=== PATIENT | female | born 1980 | race Two or more races ===

== ENCOUNTER → 2018-04-09 | Outpatient (CLI) | payer OTHER ==
[2018-03-23 13:32] VITALS: BP 112/62
[~2018-04-09] MED LIST: HYDR-971 PO; LOPE2TAB56 PO; ONDA4TAB12 PO; Pantoprazole PO; SERT100T PO
--- NOTE | 2018-04-09 15:58 | RAD ---
Obstetrical ultrasound, 04/09/2018: HISTORY: Threatened Transabdominal and transvaginal scans were obtained. There are 2 small cystic structures in the central uterine cavity. The largest of these demonstrates a mean diameter of 2.4 cm suggesting a gestational age of 7 weeks and 3 days. No yolk sac or pole is seen within this cystic structure. Only a few scattered internal echoes are evident. A gestational sac of this diameter should demonstrate a yolk sac and probably a pole, if viable. Smaller 9 mm hypoechoic structure in the central uterine cavity along the superior margin of this larger fluid collection. There are low level at echoes within this structure. No yolk sac or pole is evident. This may represent a small subchorionic hemorrhage The ovaries are unremarkable. No adnexal mass is seen. No free fluid is evident in the pelvis. IMPRESSION: 1. Two small intrauterine fluid collections are evident, one of which is probably a nonviable (blighted ovum). The other smaller fluid collection is probably a small subchorionic hemorrhage, although an early twin cannot be excluded. Correlation with hCG titers and possibly sonographic follow-up is suggested. 2. No adnexal abnormality is detected. Electronically signed by: Dennis Garcia MD (04/09/2018 3:55 PM) [facility]
== END | disposition home or self-care (01) ==
LOC: US 12:09
PROVIDERS: ATTEND Obstetrics & Gynecology
DX: O20.0 Threatened abortion (principal); Z3A.01 Less than 8 weeks gestation of pregnancy
CPT/HCPCS: 76801; 76817

== ENCOUNTER 2018-04-18 13:08 | Day surgery (SDC) | payer OTHER ==
[~2018-04-18] VITALS: Ht 152.4 cm; Wt 59.9 kg
--- NOTE | 2018-04-18 12:18 | PDOC ---
BRIEF OPERATIVE NOTE Date: Apr 18, 2018 Pre-Op Diagnosis Blighted ovum Post-Op Diagnosis SAme Procedure Performed Suction D&C Surgeon Dr. Arana Anesthesia Type: General Blood Loss 100 ml Specimens Obtained POC Findings POC Complications none Operative Note see dictation SHAISTA ARANA Jr, MD Apr 18, 2018 12:18
--- NOTE | 2018-04-18 12:19 | DISCH ---
DISCHARGE INSTRUCTIONS Condition on Discharge Condition on Discharge: Stable Activity After Discharge Activity Instructions for Disc: Activity as tolerated Lifting Instructions after Dis: No heavy lifting, No pulling or pushing, Do not lift >10 pounds Exercise Instruction after Dis: Progress as tolerated Driving Instructions after Dis: Do not drive today Weight Bearing Status after Di: Full weight bearing Diet after Discharge Diet after Discharge: Regular Diet Texture: Regular Swallowing Supervision: None needed Contacting the DRRahel after DC Call your doctor for: Concerns you may have Follow-Up Follow up with: Dr. Arana in 1 wk Treatment/Equipment after DC Adaptive Equipment Issued: None SHAISTA ARANA Jr, MD Apr 18, 2018 12:19
[~2018-04-18 13:08] MED LIST changes: -HYDR-971 PO; +HYDROmorphone 2 MG/ML VIAL IV PRN; +IV RINGERS,LACTATED 1000ML 1,000 ML IV SCH; +LIDOCAINE 1% PF 2 ML VIAL. ID PRN; +LIDOCAINE 2% PF Vial for OR 5 ML VIAL. ONE; +MORPHINE SULFATE 2 MG/ML VIAL. IV PRN; +ONDANSETRON PF 4 MG/2 ML VIAL. IV PRN; +OXYTOCIN 10 UNIT/ML VIAL. ONE; +PROCHLORPERAZINE 10 MG/2 ML VIAL. IV PRN; +PROPOFOL 20 ML IV ONE; +SEVOFLURANE 31 TO 60 MINUTES. IH ONE; +VASOPRESSIN 20 UNIT/ML VIAL. ONE; +fentaNYL PF VIAL 100 MCG/2 ML VIAL IV PRN; +fentaNYL PF VIAL 100 MCG/2 ML VIAL ONE
[2018-04-18] MEDS ORDERED: HYDR-971 PO ×2 (13:13→13:15)
--- NOTE | 2018-04-18 13:23 | OP ---
DATE OF SURGERY: PREOPERATIVE DIAGNOSIS: Blighted ovum. POSTOPERATIVE DIAGNOSIS: Blighted ovum. PROCEDURE: Suction D and C. SURGEON: Shaista Galo M.D. ANESTHESIA: GETA. ESTIMATED BLOOD LOSS: 100 mL. COMPLICATIONS: None. FINDINGS: Products of conception. SUMMARY: A 37-year-old with 9-week blighted ovum counseled on suction D and C risks, benefits and expectations and voiced a clear understanding to proceed. DESCRIPTION OF PROCEDURE: The patient was taken to surgery suite and placed in dorsal lithotomy position. She was prepped with Betadine solution and draped in a sterile fashion. After adequate anesthesia, weighted speculum and curved Sarita were placed vaginally. The anterior lip of the cervix, where a single tooth tenaculum was placed. Cervix was dilated with Hegar dilators up to a size 10. The 9 curved tip suction curette was then passed and rotated in a circumferential manner at a pressure of 65 cm of mercury, removing products of conception and blood products. Sharp curettage took place until a fine gritty surface was palpated circumferentially. Suction curette was passed once again, removing additional products of conception. The area on the anterior lip of the cervix where the single tooth tenaculum was, had caused a laceration on the cervix. This was repaired with 2-0 Vicryl suture in a [id number] manner. The area was then hemostatic. The weighted speculum was then removed. The patient was taken to the recovery room in stable condition. Sponge and needle count correct x 3. SHAISTA GALO MD DR: VANITA/hayden JOB#: [id number] / [id number]
[2018-04-18 14:08] VITALS: BP 96/68
--- NOTE | 2018-04-22 13:09 | PATHOLOGY ---
[facility] Accession Number: [id number] . 01 Material submitted: . PRODUCTS OF CONCEPTION . 01 Clinical history: . Missed . . 02 Diagnosis: Intrauterine contents, removal: - Chorionic villi present. (SK:[facility]; 04/22/2018) QMS/04/22/2018 . 02 Electronically signed: . Cristobal Og MD, Pathologist NPI- [id number] . 01 Gross description: . Received in formalin labeled "King, Nayrobi, products of conception" is a 33 g, 6.7 x 4.0 x 2.5 cm aggregate of pink-thorpe soft tissue fragments. No parts are identified. Warehouse Inventory Clerk sections are submitted in cassettes A1-A3. ([facility] [place]; 04/18/2018) SYC/SYC . 02 Pathologist provided ICD-10: O02.1 . 02 CPT . 435577 Specimen Comment: A courtesy copy of this report has been sent to Specimen Comment: [phone], . Specimen Comment: Report sent to / DR KING Performed at: 01 [facility] [address] [place] [address] [address], [place] [id number] MD Jb Wells MD Phone: [phone] Performed at: 02 [facility] [address] [id number] MD Cosmo Mclean MD Phone: [phone]
== END 2018-04-18 14:37 | disposition home or self-care (01) ==
LOC: SURG 13:08
PROVIDERS: ATTEND Obstetrics & Gynecology
DX: O02.0 Blighted ovum and nonhydatidiform mole (principal); F32.9 Major depressive disorder, single episode, unspecified; Z90.49 Acquired absence of other specified parts of digestive tract; Z98.890 Other specified postprocedural states; Z79.899 Other long term (current) drug therapy; Z88.8 Allergy status to other drugs, medicaments and biological substances; Z82.49 Family history of ischemic heart disease and other diseases of the circulatory system; Z83.3 Family history of diabetes mellitus
CPT/HCPCS: 59820; 88305; A7015; J0690; J2001; J2590; J2704; J3010; J3490

== ENCOUNTER 2018-10-25 15:38 | Inpatient (IN) | payer OTHER ==
[~2018-10-25] VITALS: Ht 152.4 cm; Wt 59.0 kg
[~2018-10-25 15:38] MED LIST changes: +HYDR-3164 PO; -HYDROmorphone 2 MG/ML VIAL IV PRN; -IV RINGERS,LACTATED 1000ML 1,000 ML IV SCH; -LIDOCAINE 1% PF 2 ML VIAL. ID PRN; -LIDOCAINE 2% PF Vial for OR 5 ML VIAL. ONE; -MORPHINE SULFATE 2 MG/ML VIAL. IV PRN; -ONDANSETRON PF 4 MG/2 ML VIAL. IV PRN; -OXYTOCIN 10 UNIT/ML VIAL. ONE; -PROCHLORPERAZINE 10 MG/2 ML VIAL. IV PRN; -PROPOFOL 20 ML IV ONE; -SEVOFLURANE 31 TO 60 MINUTES. IH ONE; -VASOPRESSIN 20 UNIT/ML VIAL. ONE; -fentaNYL PF VIAL 100 MCG/2 ML VIAL IV PRN; -fentaNYL PF VIAL 100 MCG/2 ML VIAL ONE
[2018-10-25 16:30] VITALS: BP 117/80
--- NOTE | 2018-10-25 17:15 | PDOC1 ---
History and Physical Date of Admission Date of Admission DATE: 10/25/18 TIME: 17:15 Identification/Chief Complaint Chief Complaint SEEN AT [facility] ER WITH ACUTE SBO, PAIN// ABNORMAL CT C/W abrupt transition lower mid-abdomen c/o intractable emesis x [address] HENRY IN ER, [facility] Past Medical History Past Medical History Past Family/Social History Past Medical History Heme/Onc: Cancer Psych: Anxiety, Depression Past Surgical History Past Surgical History: Appendectomy, Cholecystectomy, Colon Resection Family History Family History: Diabetes, Heart Disease Social History Social History: Parent No ALCOHOL: none Drugs: None Lives: with Family * Past Medical, Surgical, Family and Obstetric Histories reviewed from chart. Blood Type: Unknown Rubella: Unknown RPR/VDRL: Unknown GBS Status: Unknown HBsAG: Unknown Heme/Onc: Cancer Psych: Anxiety, Depression Rheumatologic: No pertinent hx Infectious disease: No pertinent hx ENT: No pertinent hx Past Surgical History Past Surgical History: Appendectomy, Cholecystectomy, Colon Resection Family History Family History: Diabetes, Heart Disease, High Cholestrol Family History: Parent Social History Smoke: No ALCOHOL: none Drugs: None Current Medications Current Medications Active Scripts Active Reported Zoloft (Sertraline Hcl) 100 Mg Tablet 1 Tab PO DAILY Allergies Allergies: Coded Allergies: metoclopramide (Verified Allergy, Severe, Shortness of Air, 04/18/18) promethazine (Verified Allergy, Intermediate, 04/18/18) ROS Review of System 14 PT ROS OTHERWISE NEG General: No: Chills, Night Sweats, Fatigue, Malaise, Appetite, Other PSYCHOLOGICAL ROS: YES: Anxiety; No: Behavioral Disorder, Concentration difficultie, Decreased libido, Depression, Disorientation, Hallucinations, Hostility, Irritablity, Memory difficulties, Mood Swings, Obsessive thoughts, Physical abuse, Sexual abuse, Sleep disturbances, Suicidal ideation, Other Eyes: No Blurry vision, No Decreased vision, No Double vision, No Dry eyes, No Excessive tearing, No Eye Pain, No Itchy Eyes, No Loss of vision, No Photophobia, No Scotomata, No Uses contacts, No Uses glasses, No Other HEENT: No: Heacaches, Visual Changes, Hearing change, Nasal congestion, Nasal discharge, Oral lesions, Sinus pain, Sore Throat, Epistaxis, Sneezing, Snoring, Tinnitus, Vertigo, Vocal changes, Other ALLERGY AND IMMUNOLOGY: No: Hives, Insect Bite Sensitivity, Itchy/Watery Eyes, Nasal Congestion, Post Nasal Drip, Seasonal Allergies, Other Hematological and Lymphatic: No: Bleeding Problems, Blood Clots, Blood Transfusions, Brusing, Night Sweats, Pallor, Swollen Lymph Nodes, Other ENDOCRINE: No: Breast Changes, Galactorrhea, Hair Pattern Changes, Hot Flashes, Malaise/lethargy, Mood Swings, Palpitations, Polydipsia/polyuria, Skin Changes, Temperature Intolerance, Unexpected Weight Changes, Other Respiratory: No: Cough, Hemoptysis, Orthopnea, Pleuritic Pain, Shortness of breath, SOB with excertion, Sputum Changes, Stridor, Tachypnea, Wheezing, Other Cardiovascular: No Chest Pain, No Palpitations, No Orthopnea, No Paroxysmal Noc. Dyspnea, No Edema, No Lt Headedness, No Other Gastrointestinal: Yes Nausea, Yes Vomiting, Yes Abdominal Pain; No Diarrhea, No Constipation, No Melena, No Hematochezia, No Other Genitourinary: No Dysuria, No Frequency, No Incontinence, No Hematuria, No Retention, No Discharge, No Urgency, No Pain, No Flank Pain, No Other, No , No , No , No , No , No , No Musculoskeletal: No Gait Disturbance, No Joint Pain, No Joint Stiffness, No Joint Swelling, No Muscle Pain, No Muscular Weakness, No Pain In:, No Swelling In:, No Other Neurological: No Behavorial Changes, No Bowel/Bladder ControlChng, No Confusion, No Dizziness, No Gait Disturbance, No Headaches, No Impaired Coord/balance, No Memory Loss, No Numbness/Tingling, No Seizures, No Speech Problems, No Tremors, No Visual Changes, No Weakness, No Other Skin: No Dry Skin, No Eczema, No Hair Changes, No Lumps, No Mole Changes, No Mottling, No Nail Changes, No Pruritus, No Rash, No Skin Lesion Changes, No Other, No Acne Physical Exam General: Alert, Oriented X3, Cooperative, No acute distress, moderate distress HEENT: PERRLA Lungs: Clear to auscultation, Normal air movement Breasts: Not examined Abdomen: No hepatosplenomegaly, Other (loer right tenderness) Rectal Exam: not examined PELVIC: Examination not indicated Extremities: No clubbing, No cyanosis Neuro: Normal speech, Strength at 5/5 X4 ext, Sensation intact, Cranial nerves 3-12 NL Psych/Mental Status: Mental status NL, Mood NL VTE Prophylaxis Ordered VTE Prophylaxis Devices: Yes VTE Pharmacological Prophylaxi: Yes Assessment/Plan Assessment/Plan impression 1. acute small bowel obstruction 2. INTRACTABLE NAUSEA AND VOMITING plan admit npo NG TUBE IV FLUID SUPPORT DVT PROPHYLAXIS IV PROTONIX GI PROPHYLAXIS DR EDWARDS CONSULTED, AWARE OF ADMIT 78 MIN PT EXAM, chart review, > 50% of time spent with exam, chart review, pt care coordination ANSON SHELTON MD October 25, 2018 17:15
[2018-10-25] MEDS: fentaNYL PF VIAL 100 MCG/2 ML VIAL IV PRN ×2 (17:30→21:59)
[2018-10-25] MEDS: IPRATRPIUM/ALBUTEROL 0.5/2.5MG 3 ML NEBU. NEB SCH ×2 (18:45→22:45)
[2018-10-25] MEDS ORDERED: 0.9 % SODIUM CHLORIDE 3ML DISP.SYRIN. IV PRN (18:45)
[2018-10-25] MEDS ORDERED: ACETAMINOPHEN 650 MG SUPP.RECT. PR PRN (18:45)
[2018-10-25] MEDS ORDERED: guaiFENesin ORAL 200 MG/10 ML LIQUID. PO PRN (18:45)
[2018-10-25] MEDS ORDERED: LORazepam 0.5 MG TABLET PO PRN (18:45)
[2018-10-25] MEDS ORDERED: cloNIDine HCL 0.1 MG TABLET PO PRN (18:45)
[2018-10-25 19:00] VITALS: BP 123/79
[2018-10-25] MEDS: IV NORMAL SALINE 1000ML BAG 1,000 ML IV SCH (19:23)
[2018-10-25] MEDS: ONDANSETRON PF 4 MG/2 ML VIAL. IV PRN (19:24)
--- NOTE | 2018-10-25 19:40 | NUR ---
Pt refused scheduled breathing treatment; pt's lungs clear with no c/o SOA. Pt in bed w/ family at bedside, will continue to monitor.
[2018-10-25] MEDS ORDERED: fentaNYL PF VIAL 100 MCG/2 ML VIAL IV ONE (19:45)
[2018-10-25 23:00] VITALS: BP 120/75
[2018-10-26] MEDS: fentaNYL PF VIAL 100 MCG/2 ML VIAL IV PRN ×4 (02:06→21:31)
[2018-10-26] MEDS: ONDANSETRON PF 4 MG/2 ML VIAL. IV PRN ×3 (02:06→21:34)
[2018-10-26] MEDS: IPRATRPIUM/ALBUTEROL 0.5/2.5MG 3 ML NEBU. NEB SCH ×6 (02:45→22:45)
[2018-10-26 03:00] VITALS: BP 108/71
[2018-10-26] MEDS: IV NORMAL SALINE 1000ML BAG 1,000 ML IV SCH ×2 (05:10→14:39)
[2018-10-26 05:47] LABS: BASO % 0 % (0-3); EOS % 0 % (0-3); HEMATOCRIT 43.2 % (36.0-47.0); LYMPH # 1.2 x10^3/uL (1.0-4.8); LYMPH % 15 % (24-48); MEAN CORPUSCULAR HEMOGLOBIN 29 pg (25-35); MEAN CORPUSCULAR HGB CONC 32 g/dL (31-37); MEAN CORPUSCULAR VOLUME 88 fL (79-100); MONO # 0.3 x10^3/uL (0.0-1.1); MONO % 3 % (0-9); NEUT # 6.8 x10^3uL (1.8-7.7); NEUT % 81 % (31-73); PLATELET COUNT 265 x10^3/uL (140-400); RED BLOOD COUNT 4.91 x10^6/uL (3.50-5.40); RED CELL DISTRIBUTION WIDTH 12.9 % (11.5-14.5); WHITE BLOOD COUNT 8.4 x10^3/uL (4.0-11.0)
[2018-10-26 05:53] LABS: ALBUMIN 3.4 g/dL (3.4-5.0); CALCIUM 8.2 mg/dL (8.5-10.1); CREATININE 0.7 mg/dL (0.6-1.0); GFR 93.2; POTASSIUM 3.8 mmol/L (3.5-5.1); TOTAL BILIRUBIN 0.4 mg/dL (0.2-1.0); TOTAL PROTEIN 6.9 g/dL (6.4-8.2)
[2018-10-26 07:00] VITALS: BP 130/78
[2018-10-26] MEDS: ENOXAPARIN 40 MG/0.4 ML SYRINGE. SQ SCH (08:11)
--- NOTE | 2018-10-26 08:12 | PDOC2 ---
CONSULT Date of Consult Date of Consult DATE: 10/26/18 TIME: 08:09 Reason for Consult Reason for Consult: Nausea vomiting Referring Physician Referring Physician: Tamiko Identification/Chief Complaint Chief Complaint Nausea vomiting Source Source: Patient History of Present Illness Reason for Visit: 37-year-old female who was seen initially at the emergency department at [facility] with complaints of 24 hours nausea vomiting and upper abdominal pain. She was transferred to [place] for further evaluation for possible small bowel obstruction patient was seen in her room this morning resting comfortably with an NG tube she states that she's had nausea vomiting for 24 hours although this morning she is feeling somewhat better denies passing any flatus or stool overnight last bowel movement was yesterday morning. She has a long history of ileus versus small bowel obstructions being hospitalized with resolution of bowel obstructions with conservative therapy she has known history of colon resection appendectomy, history of carcinoid Past Medical History Cardiovascular: No pertinent hx Pulmonary: No pertinent hx GI: No pertinent hx Heme/Onc: Cancer Psych: Anxiety, Depression Rheumatologic: No pertinent hx Infectious disease: No pertinent hx ENT: No pertinent hx Past Surgical History Past Surgical History: Appendectomy, Cholecystectomy, Colon Resection Family History Family History: Diabetes, Heart Disease, High Cholestrol Social History Social History: Parent No ALCOHOL: none Drugs: None Lives: with Family Current Medications Current Medications Current Medications Fentanyl Citrate (Fentanyl 2ml Vial) 50 mcg PRN Q4HRS PRN IV PAIN Last administered on 10/25/18at 17:30; Start 10/25/18 at 17:15 Sodium Chloride (Normal Saline Flush 3ml) 3 ml QSHIFT PRN IV AFTER MEDS AND BLOOD DRAWS; Start 10/25/18 at 18:45 Sodium Chloride 1,000 ml @ 100 mls/hr Q10H IV Last administered on 10/26/18at 05:10; Start 10/25/18 at 18:39 Ondansetron HCl (Zofran) 4 mg PRN Q4HRS PRN IV NAUSEA/VOMITING Last administered on 10/26/18at 06:21; Start 10/25/18 at 18:45 Acetaminophen (Tylenol Supp) 650 mg PRN Q4HRS PRN CT TEMP OVER 100.4F OR MILD PAIN; Start 10/25/18 at 18:45 Clonidine HCl (Catapres) 0.1 mg PRN Q6HRS PRN PO SBP>160 OR DBP>90; Start 10/25/18 at 18:45 Diphenhydramine HCl (Benadryl) 25 mg PRN Q4HRS PRN IVP ITCHING; Start 10/25/18 at 18:45 Albuterol/ Ipratropium (Duoneb) 3 ml Q4H NEB ; Start 10/25/18 at 18:45 Guaifenesin (Robitussin) 200 mg PRN Q4HRS PRN PO COUGH; Start 10/25/18 at 18:45 Lorazepam (Ativan) 0.5 mg PRN Q4HRS PRN PO ANXIETY / AGITATION; Start 10/25/18 at 18:45 Enoxaparin Sodium (Lovenox 40mg Syringe) 40 mg DAILY SQ ; Start 10/26/18 at 09:00 Fentanyl Citrate (Fentanyl 2ml Vial) 50 mcg 1X ONCE IV Last administered on 10/25/18at 19:44; Start 10/25/18 at 19:45; Stop 10/25/18 at 19:46; Status DC Fentanyl Citrate (Fentanyl 2ml Vial) 75 mcg PRN Q3HRS PRN IV PAIN Last administered on 10/26/18at 05:09; Start 10/25/18 at 19:45 Active Scripts Active Reported Zoloft (Sertraline Hcl) 100 Mg Tablet 1 Tab PO DAILY Allergies Allergies: Coded Allergies: metoclopramide (Verified Allergy, Severe, Shortness of Air, 04/18/18) promethazine (Verified Allergy, Intermediate, 04/18/18) ROS Gastrointestinal: Yes Nausea, Yes Vomiting, Yes Abdominal Pain Physical Exam General: Alert, Oriented X3, Cooperative, mild distress HEENT: Atraumatic Lungs: Clear to auscultation, Normal air movement Heart: Regular rate, No murmurs Abdomen: Normal bowel sounds, Soft, Other (mildly tender to palpation in the epigastrium NG tube with bilious output) Extremities: No edema Skin: No significant lesion Neuro: Normal speech Psych/Mental Status: Mental status NL Vitals VITALS Vital Signs Date Time Temp Pulse Resp B/P (MAP) Pulse Ox O2 Delivery O2 Flow Rate FiO2 10/26/18 05:40 16 Room Air 10/26/18 03:00 97.9 80 108/71 (83) 97 97.9 Labs Labs Laboratory Tests Test 10/26/18 05:05 White Blood Count 8.4 x10^3/uL (4.0-11.0) Red Blood Count 4.91 x10^6/uL (3.50-5.40) Hemoglobin 14.0 g/dL (12.0-15.5) Hematocrit 43.2 % (36.0-47.0) Mean Corpuscular Volume 88 fL (79-100) Mean Corpuscular Hemoglobin 29 pg (25-35) Mean Corpuscular Hemoglobin Concent 32 g/dL (31-37) Red Cell Distribution Width 12.9 % (11.5-14.5) Platelet Count 265 x10^3/uL (140-400) Neutrophils (%) (Auto) 81 % (31-73) Lymphocytes (%) (Auto) 15 % (24-48) Monocytes (%) (Auto) 3 % (0-9) Eosinophils (%) (Auto) 0 % (0-3) Basophils (%) (Auto) 0 % (0-3) Neutrophils # (Auto) 6.8 x10^3uL (1.8-7.7) Lymphocytes # (Auto) 1.2 x10^3/uL (1.0-4.8) Monocytes # (Auto) 0.3 x10^3/uL (0.0-1.1) Eosinophils # (Auto) 0.0 x10^3/uL (0.0-0.7) Basophils # (Auto) 0.0 x10^3/uL (0.0-0.2) Sodium Level 140 mmol/L (136-145) Potassium Level 3.8 mmol/L (3.5-5.1) Chloride Level 104 mmol/L (98-107) Carbon Dioxide Level 25 mmol/L (21-32) Anion Gap 11 (6-14) Blood Urea Nitrogen 10 mg/dL (7-20) Creatinine 0.7 mg/dL (0.6-1.0) Estimated GFR (Cockcroft-Gault) 93.2 BUN/Creatinine Ratio 14 (6-20) Glucose Level 104 mg/dL (70-99) Calcium Level 8.2 mg/dL (8.5-10.1) Total Bilirubin 0.4 mg/dL (0.2-1.0) Aspartate Amino Transf (AST/SGOT) 19 U/L (15-37) Alanine Aminotransferase (ALT/SGPT) 28 U/L (14-59) Alkaline Phosphatase 73 U/L (46-116) Total Protein 6.9 g/dL (6.4-8.2) Albumin 3.4 g/dL (3.4-5.0) Albumin/Globulin Ratio 1.0 (1.0-1.7) Laboratory Tests Test 10/26/18 05:05 White Blood Count 8.4 x10^3/uL (4.0-11.0) Red Blood Count 4.91 x10^6/uL (3.50-5.40) Hemoglobin 14.0 g/dL (12.0-15.5) Hematocrit 43.2 % (36.0-47.0) Mean Corpuscular Volume 88 fL (79-100) Mean Corpuscular Hemoglobin 29 pg (25-35) Mean Corpuscular Hemoglobin Concent 32 g/dL (31-37) Red Cell Distribution Width 12.9 % (11.5-14.5) Platelet Count 265 x10^3/uL (140-400) Neutrophils (%) (Auto) 81 % (31-73) Lymphocytes (%) (Auto) 15 % (24-48) Monocytes (%) (Auto) 3 % (0-9) Eosinophils (%) (Auto) 0 % (0-3) Basophils (%) (Auto) 0 % (0-3) Neutrophils # (Auto) 6.8 x10^3uL (1.8-7.7) Lymphocytes # (Auto) 1.2 x10^3/uL (1.0-4.8) Monocytes # (Auto) 0.3 x10^3/uL (0.0-1.1) Eosinophils # (Auto) 0.0 x10^3/uL (0.0-0.7) Basophils # (Auto) 0.0 x10^3/uL (0.0-0.2) Sodium Level 140 mmol/L (136-145) Potassium Level 3.8 mmol/L (3.5-5.1) Chloride Level 104 mmol/L (98-107) Carbon Dioxide Level 25 mmol/L (21-32) Anion Gap 11 (6-14) Blood Urea Nitrogen 10 mg/dL (7-20) Creatinine 0.7 mg/dL (0.6-1.0) Estimated GFR (Cockcroft-Gault) 93.2 BUN/Creatinine Ratio 14 (6-20) Glucose Level 104 mg/dL (70-99) Calcium Level 8.2 mg/dL (8.5-10.1) Total Bilirubin 0.4 mg/dL (0.2-1.0) Aspartate Amino Transf (AST/SGOT) 19 U/L (15-37) Alanine Aminotransferase (ALT/SGPT) 28 U/L (14-59) Alkaline Phosphatase 73 U/L (46-116) Total Protein 6.9 g/dL (6.4-8.2) Albumin 3.4 g/dL (3.4-5.0) Albumin/Globulin Ratio 1.0 (1.0-1.7) Images Images ET scan done at [facility] show dilated loops of small bowel possible transition point mid ileum and a fair amount of stool within the colon Assessment/Plan Assessment/Plan Small bowel obstruction versus ileus agree with conservative therapy NG suction and IV hydration will recheck abdominal films in the a.m. if no improvement plan small bowel follow-through ANSON EDWARDS MD October 26, 2018 08:12
[2018-10-26 08:31] LABS: BILIRUBIN,URINE NEGATIVE (NEG); CLARITY,URINE CLEAR; COLOR,URINE YELLOW; NITRITE,URINE NEGATIVE (NEG); PH,URINE 7.5; PROTEIN,URINE NEGATIVE (NEG-TRACE); UROBILINOGEN,URINE 0.2 mg/dL (0.2 mg/dL)
--- NOTE | 2018-10-26 08:48 | PDOC ---
PROGRESS NOTES History of Present Illness History of Present Illness VTE Prophylaxis Ordered VTE Prophylaxis Devices: Yes VTE Pharmacological Prophylaxi: Yes Assessment/Plan Assessment/Plan impression 1. acute small bowel obstruction 2. INTRACTABLE NAUSEA AND VOMITING 3. hx carcinoid tumor, remote plan admit npo NG TUBE IV FLUID SUPPORT DVT PROPHYLAXIS IV PROTONIX GI PROPHYLAXIS DR EDWARDS CONSULTED, AWARE OF ADMIT 38 MIN PT EXAM, chart review, > 50% of time spent with exam, chart review, pt care coordination Vitals Vitals Vital Signs Date Time Temp Pulse Resp B/P (MAP) Pulse Ox O2 Delivery O2 Flow Rate FiO2 10/26/18 08:12 Room Air 10/26/18 05:40 16 10/26/18 03:00 97.9 80 108/71 (83) 97 97.9 Physical Exam General: Alert, Oriented X3, Cooperative, mild distress Heart: Regular rate, No murmurs Lungs: Clear, Other Abdomen: Normal bowel sounds, Soft, Other (mildly tender to palpation in the epigastrium NG tube with bilious output) Extremities: No edema Skin: No significant lesion Labs LABS Laboratory Tests Test 10/26/18 05:05 White Blood Count 8.4 x10^3/uL (4.0-11.0) Red Blood Count 4.91 x10^6/uL (3.50-5.40) Hemoglobin 14.0 g/dL (12.0-15.5) Hematocrit 43.2 % (36.0-47.0) Mean Corpuscular Volume 88 fL (79-100) Mean Corpuscular Hemoglobin 29 pg (25-35) Mean Corpuscular Hemoglobin Concent 32 g/dL (31-37) Red Cell Distribution Width 12.9 % (11.5-14.5) Platelet Count 265 x10^3/uL (140-400) Neutrophils (%) (Auto) 81 % (31-73) Lymphocytes (%) (Auto) 15 % (24-48) Monocytes (%) (Auto) 3 % (0-9) Eosinophils (%) (Auto) 0 % (0-3) Basophils (%) (Auto) 0 % (0-3) Neutrophils # (Auto) 6.8 x10^3uL (1.8-7.7) Lymphocytes # (Auto) 1.2 x10^3/uL (1.0-4.8) Monocytes # (Auto) 0.3 x10^3/uL (0.0-1.1) Eosinophils # (Auto) 0.0 x10^3/uL (0.0-0.7) Basophils # (Auto) 0.0 x10^3/uL (0.0-0.2) Sodium Level 140 mmol/L (136-145) Potassium Level 3.8 mmol/L (3.5-5.1) Chloride Level 104 mmol/L (98-107) Carbon Dioxide Level 25 mmol/L (21-32) Anion Gap 11 (6-14) Blood Urea Nitrogen 10 mg/dL (7-20) Creatinine 0.7 mg/dL (0.6-1.0) Estimated GFR (Cockcroft-Gault) 93.2 BUN/Creatinine Ratio 14 (6-20) Glucose Level 104 mg/dL (70-99) Calcium Level 8.2 mg/dL (8.5-10.1) Total Bilirubin 0.4 mg/dL (0.2-1.0) Aspartate Amino Transf (AST/SGOT) 19 U/L (15-37) Alanine Aminotransferase (ALT/SGPT) 28 U/L (14-59) Alkaline Phosphatase 73 U/L (46-116) Total Protein 6.9 g/dL (6.4-8.2) Albumin 3.4 g/dL (3.4-5.0) Albumin/Globulin Ratio 1.0 (1.0-1.7) Comment Review of Relevant I have reviewed the following items nitni (where applicable) has been applied. Labs Laboratory Tests Test 10/26/18 05:05 White Blood Count 8.4 x10^3/uL (4.0-11.0) Red Blood Count 4.91 x10^6/uL (3.50-5.40) Hemoglobin 14.0 g/dL (12.0-15.5) Hematocrit 43.2 % (36.0-47.0) Mean Corpuscular Volume 88 fL (79-100) Mean Corpuscular Hemoglobin 29 pg (25-35) Mean Corpuscular Hemoglobin Concent 32 g/dL (31-37) Red Cell Distribution Width 12.9 % (11.5-14.5) Platelet Count 265 x10^3/uL (140-400) Neutrophils (%) (Auto) 81 % (31-73) Lymphocytes (%) (Auto) 15 % (24-48) Monocytes (%) (Auto) 3 % (0-9) Eosinophils (%) (Auto) 0 % (0-3) Basophils (%) (Auto) 0 % (0-3) Neutrophils # (Auto) 6.8 x10^3uL (1.8-7.7) Lymphocytes # (Auto) 1.2 x10^3/uL (1.0-4.8) Monocytes # (Auto) 0.3 x10^3/uL (0.0-1.1) Eosinophils # (Auto) 0.0 x10^3/uL (0.0-0.7) Basophils # (Auto) 0.0 x10^3/uL (0.0-0.2) Sodium Level 140 mmol/L (136-145) Potassium Level 3.8 mmol/L (3.5-5.1) Chloride Level 104 mmol/L (98-107) Carbon Dioxide Level 25 mmol/L (21-32) Anion Gap 11 (6-14) Blood Urea Nitrogen 10 mg/dL (7-20) Creatinine 0.7 mg/dL (0.6-1.0) Estimated GFR (Cockcroft-Gault) 93.2 BUN/Creatinine Ratio 14 (6-20) Glucose Level 104 mg/dL (70-99) Calcium Level 8.2 mg/dL (8.5-10.1) Total Bilirubin 0.4 mg/dL (0.2-1.0) Aspartate Amino Transf (AST/SGOT) 19 U/L (15-37) Alanine Aminotransferase (ALT/SGPT) 28 U/L (14-59) Alkaline Phosphatase 73 U/L (46-116) Total Protein 6.9 g/dL (6.4-8.2) Albumin 3.4 g/dL (3.4-5.0) Albumin/Globulin Ratio 1.0 (1.0-1.7) Laboratory Tests Test 10/26/18 05:05 White Blood Count 8.4 x10^3/uL (4.0-11.0) Red Blood Count 4.91 x10^6/uL (3.50-5.40) Hemoglobin 14.0 g/dL (12.0-15.5) Hematocrit 43.2 % (36.0-47.0) Mean Corpuscular Volume 88 fL (79-100) Mean Corpuscular Hemoglobin 29 pg (25-35) Mean Corpuscular Hemoglobin Concent 32 g/dL (31-37) Red Cell Distribution Width 12.9 % (11.5-14.5) Platelet Count 265 x10^3/uL (140-400) Neutrophils (%) (Auto) 81 % (31-73) Lymphocytes (%) (Auto) 15 % (24-48) Monocytes (%) (Auto) 3 % (0-9) Eosinophils (%) (Auto) 0 % (0-3) Basophils (%) (Auto) 0 % (0-3) Neutrophils # (Auto) 6.8 x10^3uL (1.8-7.7) Lymphocytes # (Auto) 1.2 x10^3/uL (1.0-4.8) Monocytes # (Auto) 0.3 x10^3/uL (0.0-1.1) Eosinophils # (Auto) 0.0 x10^3/uL (0.0-0.7) Basophils # (Auto) 0.0 x10^3/uL (0.0-0.2) Sodium Level 140 mmol/L (136-145) Potassium Level 3.8 mmol/L (3.5-5.1) Chloride Level 104 mmol/L (98-107) Carbon Dioxide Level 25 mmol/L (21-32) Anion Gap 11 (6-14) Blood Urea Nitrogen 10 mg/dL (7-20) Creatinine 0.7 mg/dL (0.6-1.0) Estimated GFR (Cockcroft-Gault) 93.2 BUN/Creatinine Ratio 14 (6-20) Glucose Level 104 mg/dL (70-99) Calcium Level 8.2 mg/dL (8.5-10.1) Total Bilirubin 0.4 mg/dL (0.2-1.0) Aspartate Amino Transf (AST/SGOT) 19 U/L (15-37) Alanine Aminotransferase (ALT/SGPT) 28 U/L (14-59) Alkaline Phosphatase 73 U/L (46-116) Total Protein 6.9 g/dL (6.4-8.2) Albumin 3.4 g/dL (3.4-5.0) Albumin/Globulin Ratio 1.0 (1.0-1.7) Medications Current Medications Fentanyl Citrate (Fentanyl 2ml Vial) 50 mcg PRN Q4HRS PRN IV PAIN Last administered on 10/25/18at 17:30; Start 10/25/18 at 17:15 Sodium Chloride (Normal Saline Flush 3ml) 3 ml QSHIFT PRN IV AFTER MEDS AND BLOOD DRAWS; Start 10/25/18 at 18:45 Sodium Chloride 1,000 ml @ 100 mls/hr Q10H IV Last administered on 10/26/18at 05:10; Start 10/25/18 at 18:39 Ondansetron HCl (Zofran) 4 mg PRN Q4HRS PRN IV NAUSEA/VOMITING Last administered on 10/26/18at 06:21; Start 10/25/18 at 18:45 Acetaminophen (Tylenol Supp) 650 mg PRN Q4HRS PRN MD TEMP OVER 100.4F OR MILD PAIN; Start 10/25/18 at 18:45 Clonidine HCl (Catapres) 0.1 mg PRN Q6HRS PRN PO SBP>160 OR DBP>90; Start 10/25/18 at 18:45 Diphenhydramine HCl (Benadryl) 25 mg PRN Q4HRS PRN IVP ITCHING; Start 10/25/18 at 18:45 Albuterol/ Ipratropium (Duoneb) 3 ml Q4H NEB ; Start 10/25/18 at 18:45 Guaifenesin (Robitussin) 200 mg PRN Q4HRS PRN PO COUGH; Start 10/25/18 at 18:45 Lorazepam (Ativan) 0.5 mg PRN Q4HRS PRN PO ANXIETY / AGITATION; Start 10/25/18 at 18:45 Enoxaparin Sodium (Lovenox 40mg Syringe) 40 mg DAILY SQ Last administered on 10/26/18at 08:11; Start 10/26/18 at 09:00 Fentanyl Citrate (Fentanyl 2ml Vial) 50 mcg 1X ONCE IV Last administered on 10/25/18at 19:44; Start 10/25/18 at 19:45; Stop 10/25/18 at 19:46; Status DC Fentanyl Citrate (Fentanyl 2ml Vial) 75 mcg PRN Q3HRS PRN IV PAIN Last administered on 10/26/18at 08:12; Start 10/25/18 at 19:45 Active Scripts Active Reported Zoloft (Sertraline Hcl) 100 Mg Tablet 1 Tab PO DAILY Vitals/I & O Vital Sign - Last 24 Hours 10/25/18 10/25/18 10/25/18 10/25/18 16:30 17:30 17:36 17:59 Temp 98.5 98.5 Pulse 63 Resp 18 B/P (MAP) 117/80 (92) Pulse Ox 99 99 O2 Delivery Room Air Room Air Room Air Room Air 10/25/18 10/25/18 10/25/18 10/25/18 19:00 19:44 19:45 20:15 Temp 97.8 97.8 Pulse 59 Resp 16 18 16 B/P (MAP) 123/79 (94) Pulse Ox 97 O2 Delivery Room Air Room Air Room Air Room Air 10/25/18 10/25/18 10/26/18 10/26/18 21:59 23:00 02:06 03:00 Temp 98.7 97.9 98.7 97.9 Pulse 91 80 Resp 16 18 18 18 B/P (MAP) 120/75 (90) 108/71 (83) Pulse Ox 97 97 O2 Delivery Room Air Room Air Room Air Room Air 10/26/18 10/26/18 10/26/18 05:09 05:40 08:12 Resp 20 16 O2 Delivery Room Air Room Air Room Air Intake and Output 10/25/18 10/25/18 10/26/18 14:59 22:59 06:59 Intake Total 0 ml 0 ml Output Total 100 ml 900 ml Balance -100 ml -900 ml ANSON SHELTON MD October 26, 2018 08:48
[2018-10-26 09:15] LABS: BACTERIA,URINE 0 /HPF (0-FEW); RBC,URINE 0 /HPF (0-2); SQUAMOUS EPITHELIAL CELL,UR FEW /LPF; WBC,URINE 0 /HPF (0-4)
[2018-10-26 11:00] VITALS: BP 115/77
[2018-10-26 15:00] VITALS: BP 105/65
[2018-10-26 19:00] VITALS: BP 112/65
[2018-10-26 23:00] VITALS: BP 121/71
[2018-10-27] MEDS: fentaNYL PF VIAL 100 MCG/2 ML VIAL IV PRN ×3 (00:22→18:13)
[2018-10-27] MEDS: diphenhydrAMINE 50 MG/ML VIAL IVP PRN ×2 (00:22→22:57)
[2018-10-27] MEDS: IV NORMAL SALINE 1000ML BAG 1,000 ML IV SCH ×3 (00:24→22:58)
[2018-10-27] MEDS: IPRATRPIUM/ALBUTEROL 0.5/2.5MG 3 ML NEBU. NEB SCH ×6 (02:45→20:17)
[2018-10-27 03:00] VITALS: BP 101/65
--- NOTE | 2018-10-27 05:59 | NUR ---
pain managed all night, walked laps in the hallway, will continue poc and monitor patient.
[2018-10-27 07:00] VITALS: BP 111/74
[2018-10-27] MEDS: ENOXAPARIN 40 MG/0.4 ML SYRINGE. SQ SCH (08:27)
--- NOTE | 2018-10-27 09:04 | PDOC ---
SURGICAL PROGRESS NOTE Subjective Patient states she is feeling much better no abdominal pain she feels like she needs to have a bowel movement but has not really passed anything yet Vital Signs Vital Signs Date Time Temp Pulse Resp B/P (MAP) Pulse Ox O2 Delivery O2 Flow Rate FiO2 10/27/18 08:27 Room Air 10/27/18 07:18 98 10/27/18 07:00 97.9 82 18 111/74 (86) 97.9 I&O Intake and Output 10/27/18 06:59 Intake Total 0 ml Output Total 400 ml Balance -400 ml Intake Oral 0 ml Output Urine Total 400 ml # Voids 3 PATIENT HAS A CALLOWAY: No General: Alert, Oriented X3, Cooperative, No acute distress Abdomen: Normal bowel sounds, Soft, No tenderness, Other (nondistended) Labs Laboratory Tests Test 10/26/18 05:05 10/26/18 07:00 White Blood Count 8.4 x10^3/uL (4.0-11.0) Red Blood Count 4.91 x10^6/uL (3.50-5.40) Hemoglobin 14.0 g/dL (12.0-15.5) Hematocrit 43.2 % (36.0-47.0) Mean Corpuscular Volume 88 fL (79-100) Mean Corpuscular Hemoglobin 29 pg (25-35) Mean Corpuscular Hemoglobin Concent 32 g/dL (31-37) Red Cell Distribution Width 12.9 % (11.5-14.5) Platelet Count 265 x10^3/uL (140-400) Neutrophils (%) (Auto) 81 % (31-73) Lymphocytes (%) (Auto) 15 % (24-48) Monocytes (%) (Auto) 3 % (0-9) Eosinophils (%) (Auto) 0 % (0-3) Basophils (%) (Auto) 0 % (0-3) Neutrophils # (Auto) 6.8 x10^3uL (1.8-7.7) Lymphocytes # (Auto) 1.2 x10^3/uL (1.0-4.8) Monocytes # (Auto) 0.3 x10^3/uL (0.0-1.1) Eosinophils # (Auto) 0.0 x10^3/uL (0.0-0.7) Basophils # (Auto) 0.0 x10^3/uL (0.0-0.2) Sodium Level 140 mmol/L (136-145) Potassium Level 3.8 mmol/L (3.5-5.1) Chloride Level 104 mmol/L (98-107) Carbon Dioxide Level 25 mmol/L (21-32) Anion Gap 11 (6-14) Blood Urea Nitrogen 10 mg/dL (7-20) Creatinine 0.7 mg/dL (0.6-1.0) Estimated GFR (Cockcroft-Gault) 93.2 BUN/Creatinine Ratio 14 (6-20) Glucose Level 104 mg/dL (70-99) Calcium Level 8.2 mg/dL (8.5-10.1) Total Bilirubin 0.4 mg/dL (0.2-1.0) Aspartate Amino Transf (AST/SGOT) 19 U/L (15-37) Alanine Aminotransferase (ALT/SGPT) 28 U/L (14-59) Alkaline Phosphatase 73 U/L (46-116) Total Protein 6.9 g/dL (6.4-8.2) Albumin 3.4 g/dL (3.4-5.0) Albumin/Globulin Ratio 1.0 (1.0-1.7) Urine Collection Type Unknown Urine Color Yellow Urine Clarity Clear Urine pH 7.5 Urine Specific [place] >=1.030 Urine Protein Negative mg/dL (NEG-TRACE) Urine Glucose (UA) Negative mg/dL (NEG) Urine Ketones (Stick) 15 mg/dL (NEG) Urine Blood Negative (NEG) Urine Nitrite Negative (NEG) Urine Bilirubin Negative (NEG) Urine Urobilinogen Dipstick 0.2 mg/dL (0.2 mg/dL) Urine Leukocyte Esterase Negative (NEG) Urine RBC 0 /HPF (0-2) Urine WBC 0 /HPF (0-4) Urine Squamous Epithelial Cells Few /LPF Urine Bacteria 0 /HPF (0-FEW) Urine Mucus Slight /LPF I have reviewed the following Acute abdominal series reviewed does not appear to be much in the way of dilated small bowel not been read by radiology as of yet Assessment/Plan Small bowel obstruction and clinically is improving awaiting radiology's read on her acute abdominal series if not improved we'll plan on small bowel follow- through for tomorrow ANSON EDWARDS MD October 27, 2018 09:04
--- NOTE | 2018-10-27 10:51 | RAD ---
Acute abdominal series to include a PA chest radiograph 10/27/2018 Clinical History: History of small bowel obstruction. A PA digital radiograph of the chest was obtained. Supine and erect AP digital radiographs of the abdomen/pelvis were obtained. Comparison study is dated 12/06/2017. The tip of the NG tube overlies the gastric fundus. Surgical clips are seen overlying the right upper quadrant of the abdomen consistent with a cholecystectomy. The cardiac and mediastinal silhouettes are within normal limits in size and configuration. No pulmonary infiltrate is seen. No pleural effusion or pneumothorax is noted. Surgical clips are seen within the right mid abdomen. Mildly dilated small bowel loops are seen within the mid abdomen slightly. The abdominal bowel gas pattern is nonspecific. A moderate amount of stool is seen throughout the colon. There is no evidence of free air. No radiopaque calculus is seen. The osseous structures are unchanged. Impression: Slight improvement in the air distention of small bowel loops within the abdomen. Electronically signed by: Brenden Jacob MD (10/27/2018 10:48 AM) [facility]
[2018-10-27 11:00] VITALS: BP 103/77
--- NOTE | 2018-10-27 11:43 | PDOC ---
PROGRESS NOTES History of Present Illness History of Present Illness VTE Prophylaxis Ordered VTE Prophylaxis Devices: Yes VTE Pharmacological Prophylaxi: Yes Assessment/Plan Assessment/Plan impression 1. acute small bowel obstruction 2. INTRACTABLE NAUSEA AND VOMITING 3. hx carcinoid tumor, remote 4. volume depletion plan admit npo NG TUBE IV FLUID SUPPORT DVT PROPHYLAXIS IV PROTONIX GI PROPHYLAXIS DR EDWARDS CONSULTED, small bowel series in am 26 MIN PT EXAM, chart review, > 50% of time spent with exam, chart review, pt care coordination Vitals Vitals Vital Signs Date Time Temp Pulse Resp B/P (MAP) Pulse Ox O2 Delivery O2 Flow Rate FiO2 10/27/18 08:57 Room Air 10/27/18 07:18 98 10/27/18 07:00 97.9 82 18 111/74 (86) 97.9 Physical Exam General: Alert, Oriented X3, Cooperative, No acute distress, mild distress Heart: Regular rate, Normal S1, No murmurs Lungs: Clear, Other Abdomen: Normal bowel sounds, Soft, No tenderness, Other (nondistended) Extremities: No clubbing, No cyanosis, No edema Skin: No significant lesion Comment Review of Relevant I have reviewed the following items nitin (where applicable) has been applied. Labs Laboratory Tests Test 10/26/18 05:05 10/26/18 07:00 White Blood Count 8.4 x10^3/uL (4.0-11.0) Red Blood Count 4.91 x10^6/uL (3.50-5.40) Hemoglobin 14.0 g/dL (12.0-15.5) Hematocrit 43.2 % (36.0-47.0) Mean Corpuscular Volume 88 fL (79-100) Mean Corpuscular Hemoglobin 29 pg (25-35) Mean Corpuscular Hemoglobin Concent 32 g/dL (31-37) Red Cell Distribution Width 12.9 % (11.5-14.5) Platelet Count 265 x10^3/uL (140-400) Neutrophils (%) (Auto) 81 % (31-73) Lymphocytes (%) (Auto) 15 % (24-48) Monocytes (%) (Auto) 3 % (0-9) Eosinophils (%) (Auto) 0 % (0-3) Basophils (%) (Auto) 0 % (0-3) Neutrophils # (Auto) 6.8 x10^3uL (1.8-7.7) Lymphocytes # (Auto) 1.2 x10^3/uL (1.0-4.8) Monocytes # (Auto) 0.3 x10^3/uL (0.0-1.1) Eosinophils # (Auto) 0.0 x10^3/uL (0.0-0.7) Basophils # (Auto) 0.0 x10^3/uL (0.0-0.2) Sodium Level 140 mmol/L (136-145) Potassium Level 3.8 mmol/L (3.5-5.1) Chloride Level 104 mmol/L (98-107) Carbon Dioxide Level 25 mmol/L (21-32) Anion Gap 11 (6-14) Blood Urea Nitrogen 10 mg/dL (7-20) Creatinine 0.7 mg/dL (0.6-1.0) Estimated GFR (Cockcroft-Gault) 93.2 BUN/Creatinine Ratio 14 (6-20) Glucose Level 104 mg/dL (70-99) Calcium Level 8.2 mg/dL (8.5-10.1) Total Bilirubin 0.4 mg/dL (0.2-1.0) Aspartate Amino Transf (AST/SGOT) 19 U/L (15-37) Alanine Aminotransferase (ALT/SGPT) 28 U/L (14-59) Alkaline Phosphatase 73 U/L (46-116) Total Protein 6.9 g/dL (6.4-8.2) Albumin 3.4 g/dL (3.4-5.0) Albumin/Globulin Ratio 1.0 (1.0-1.7) Urine Collection Type Unknown Urine Color Yellow Urine Clarity Clear Urine pH 7.5 Urine Specific [place] >=1.030 Urine Protein Negative mg/dL (NEG-TRACE) Urine Glucose (UA) Negative mg/dL (NEG) Urine Ketones (Stick) 15 mg/dL (NEG) Urine Blood Negative (NEG) Urine Nitrite Negative (NEG) Urine Bilirubin Negative (NEG) Urine Urobilinogen Dipstick 0.2 mg/dL (0.2 mg/dL) Urine Leukocyte Esterase Negative (NEG) Urine RBC 0 /HPF (0-2) Urine WBC 0 /HPF (0-4) Urine Squamous Epithelial Cells Few /LPF Urine Bacteria 0 /HPF (0-FEW) Urine Mucus Slight /LPF Medications Current Medications Fentanyl Citrate (Fentanyl 2ml Vial) 50 mcg PRN Q4HRS PRN IV PAIN Last administ ered on 10/26/18 21:31; Start 10/25/18 at 17:15 Sodium Chloride (Normal Saline Flush 3ml) 3 ml QSHIFT PRN IV AFTER MEDS AND BL OOD DRAWS; Start 10/25/18 at 18:45 Sodium Chloride 1,000 ml @ 100 mls/hr Q10H IV Last administered on 10/27/18 00:24; Start 10/25/18 at 18:39 Ondansetron HCl (Zofran) 4 mg PRN Q4HRS PRN IV NAUSEA/VOMITING Last administered on 10/26/18 21:34; Start 10/25/18 at 18:45 Acetaminophen (Tylenol Supp) 650 mg PRN Q4HRS PRN [place] TEMP OVER 100.4F OR MILD PAIN; Start 10/25/18 at 18:45 Clonidine HCl (Catapres) 0.1 mg PRN Q6HRS PRN PO SBP>160 OR DBP>90; Start 10/25/18 at 18:45 Diphenhydramine HCl (Benadryl) 25 mg PRN Q4HRS PRN IVP ITCHING Last administered on 10/27/18 00:22; Start 10/25/18 at 18:45 Albuterol/ Ipratropium (Duoneb) 3 ml Q4H NEB Last administered on 10/27/18 07:16; Start 10/25/18 at 18:45 Guaifenesin (Robitussin) 200 mg PRN Q4HRS PRN PO COUGH; Start 10/25/18 at 18:45 Lorazepam (Ativan) 0.5 mg PRN Q4HRS PRN PO ANXIETY / AGITATION; Start 10/25/18 at 18:45 Enoxaparin Sodium (Lovenox 40mg Syringe) 40 mg DAILY SQ Last administered on 10/27/18 08:27; Start 10/26/18 at 09:00 Fentanyl Citrate (Fentanyl 2ml Vial) 50 mcg 1X ONCE IV Last administered on 10/25/18 19:44; Start 10/25/18 at 19:45; Stop 10/25/18 at 19:46; Status DC Fentanyl Citrate (Fentanyl 2ml Vial) 75 mcg PRN Q3HRS PRN IV PAIN Last administered on 10/27/18at 08:27; Start 10/25/18 at 19:45 Active Scripts Active Reported Zoloft (Sertraline Hcl) 100 Mg Tablet 1 Tab PO DAILY Vitals/I & O Vital Sign - Last 24 Hours 10/26/18 10/26/18 10/26/18 10/26/18 15:00 19:00 20:00 21:31 Temp 98.5 98.1 98.5 98.1 Pulse 88 80 Resp 18 18 20 B/P (MAP) 105/65 (78) 112/65 (81) Pulse Ox 100 100 100 O2 Delivery Room Air Room Air Room Air Room Air 10/26/18 10/26/18 10/27/18 10/27/18 22:07 23:00 00:22 00:52 Temp 98.4 98.4 Pulse 89 Resp 20 18 20 20 B/P (MAP) 121/71 (88) Pulse Ox 100 100 100 O2 Delivery Room Air Room Air Room Air 10/27/18 10/27/18 10/27/18 10/27/18 03:00 07:00 07:18 08:00 Temp 98.7 97.9 98.7 97.9 Pulse 95 82 Resp 18 18 B/P (MAP) 101/65 (77) 111/74 (86) Pulse Ox 95 96 98 O2 Delivery Room Air Room Air Room Air Room Air 10/27/18 10/27/18 08:27 08:57 O2 Delivery Room Air Room Air Intake and Output 10/26/18 10/26/18 10/27/18 14:59 22:59 06:59 Intake Total 0 ml 0 ml Output Total 400 ml Balance -400 ml 0 ml ANSON SHELTON MD October 27, 2018 11:43
[2018-10-27 15:00] VITALS: BP 101/73
--- NOTE | 2018-10-27 15:31 | EKG ---
[facility] [address] [place] [address] Test Date: 2018-10-26 Test Time: 06:14:36 Pat Name: SINDY SLADE Department: Room: 400 1 Gender: F Literacy Coach: CESARRT : 1980 Requested By: ANSON SHELTON Order Number: [id number] Reading MD: Miguel Engel MD Measurements Intervals [place] Rate: 76 P: 41 VA: 128 QRS: 88 QRSD: 78 T: 52 QT: 396 QTc: 450 Interpretive Statements SINUS RHYTHM NON-SPECIFIC ST/T CHANGES Electronically Signed On 11-21-2018 14:44:37 CDT by Miguel Engel MD
--- NOTE | 2018-10-27 16:57 | NUR ---
Pt complained of feeling "NG tube in my throat". Pt began to gag and vomit bile. After vomit, NG was out. This nurse called Dr. Thompson. Dr. Thompson stated to leave it out and monitor pt for nausea. Free text order put in. Pt has denied n/v. Pt walked two laps around nursing station. Will continue to monitor.
[2018-10-27 19:18] VITALS: BP 106/68
[2018-10-27 23:00] VITALS: BP 117/68
[2018-10-28 03:00] VITALS: BP 109/57
[2018-10-28 04:56] LABS: BASO % 0 % (0-3); EOS # 0.1 x10^3/uL (0.0-0.7); EOS % 1 % (0-3); HEMATOCRIT 38.6 % (36.0-47.0); HEMOGLOBIN 12.7 g/dL (12.0-15.5); LYMPH # 1.8 x10^3/uL (1.0-4.8); LYMPH % 28 % (24-48); MEAN CORPUSCULAR HEMOGLOBIN 29 pg (25-35); MEAN CORPUSCULAR HGB CONC 33 g/dL (31-37); MEAN CORPUSCULAR VOLUME 88 fL (79-100); MONO # 0.3 x10^3/uL (0.0-1.1); MONO % 5 % (0-9); NEUT # 4.2 x10^3uL (1.8-7.7); NEUT % 66 % (31-73); PLATELET COUNT 206 x10^3/uL (140-400); RED BLOOD COUNT 4.39 x10^6/uL (3.50-5.40); RED CELL DISTRIBUTION WIDTH 12.7 % (11.5-14.5); WHITE BLOOD COUNT 6.4 x10^3/uL (4.0-11.0)
[2018-10-28 05:36] LABS: ALBUMIN 2.9 g/dL (3.4-5.0); ALBUMIN/GLOBULIN RATIO 0.9 (1.0-1.7); CALCIUM 7.7 mg/dL (8.5-10.1); CREATININE 0.5 mg/dL (0.6-1.0); GFR 137.4; POTASSIUM 3.8 mmol/L (3.5-5.1); TOTAL BILIRUBIN 0.6 mg/dL (0.2-1.0); TOTAL PROTEIN 6.1 g/dL (6.4-8.2)
[2018-10-28] MEDS: IV NORMAL SALINE 1000ML BAG 1,000 ML IV SCH ×2 (06:40→16:39)
[2018-10-28 07:00] VITALS: BP 105/55
[2018-10-28] MEDS: IPRATRPIUM/ALBUTEROL 0.5/2.5MG 3 ML NEBU. NEB SCH (07:24)
[2018-10-28] MEDS ORDERED: CONTRAST GIVEN. MC PRN (07:45)
[2018-10-28] MEDS ORDERED: IOHEXOL 300 MG/ML 100ML VIAL. PO ONE (07:45)
--- NOTE | 2018-10-28 07:50 | NUR ---
pt left for SBS at 0741
--- NOTE | 2018-10-28 08:07 | PDOC ---
SURGICAL PROGRESS NOTE Subjective down for SBFT, will FU on results Vital Signs Vital Signs Date Time Temp Pulse Resp B/P (MAP) Pulse Ox O2 Delivery O2 Flow Rate FiO2 10/28/18 07:26 98 Room Air 10/28/18 07:00 98.2 82 18 105/55 (72) 98.2 I&O Intake and Output 10/28/18 07:00 Intake Total 0 ml Output Total 930 ml Balance -930 ml Intake Oral 0 ml Output Urine Total 350 ml Gastric Drainage Total 580 ml # Voids 2 Labs Laboratory Tests Test 10/28/18 04:10 White Blood Count 6.4 x10^3/uL (4.0-11.0) Red Blood Count 4.39 x10^6/uL (3.50-5.40) Hemoglobin 12.7 g/dL (12.0-15.5) Hematocrit 38.6 % (36.0-47.0) Mean Corpuscular Volume 88 fL (79-100) Mean Corpuscular Hemoglobin 29 pg (25-35) Mean Corpuscular Hemoglobin Concent 33 g/dL (31-37) Red Cell Distribution Width 12.7 % (11.5-14.5) Platelet Count 206 x10^3/uL (140-400) Neutrophils (%) (Auto) 66 % (31-73) Lymphocytes (%) (Auto) 28 % (24-48) Monocytes (%) (Auto) 5 % (0-9) Eosinophils (%) (Auto) 1 % (0-3) Basophils (%) (Auto) 0 % (0-3) Neutrophils # (Auto) 4.2 x10^3uL (1.8-7.7) Lymphocytes # (Auto) 1.8 x10^3/uL (1.0-4.8) Monocytes # (Auto) 0.3 x10^3/uL (0.0-1.1) Eosinophils # (Auto) 0.1 x10^3/uL (0.0-0.7) Basophils # (Auto) 0.0 x10^3/uL (0.0-0.2) Sodium Level 138 mmol/L (136-145) Potassium Level 3.8 mmol/L (3.5-5.1) Chloride Level 103 mmol/L (98-107) Carbon Dioxide Level 21 mmol/L (21-32) Anion Gap 14 (6-14) Blood Urea Nitrogen 7 mg/dL (7-20) Creatinine 0.5 mg/dL (0.6-1.0) Estimated GFR (Cockcroft-Gault) 137.4 BUN/Creatinine Ratio 14 (6-20) Glucose Level 58 mg/dL (70-99) Calcium Level 7.7 mg/dL (8.5-10.1) Total Bilirubin 0.6 mg/dL (0.2-1.0) Aspartate Amino Transf (AST/SGOT) 21 U/L (15-37) Alanine Aminotransferase (ALT/SGPT) 20 U/L (14-59) Alkaline Phosphatase 66 U/L (46-116) Total Protein 6.1 g/dL (6.4-8.2) Albumin 2.9 g/dL (3.4-5.0) Albumin/Globulin Ratio 0.9 (1.0-1.7) Laboratory Tests Test 10/28/18 04:10 White Blood Count 6.4 x10^3/uL (4.0-11.0) Red Blood Count 4.39 x10^6/uL (3.50-5.40) Hemoglobin 12.7 g/dL (12.0-15.5) Hematocrit 38.6 % (36.0-47.0) Mean Corpuscular Volume 88 fL (79-100) Mean Corpuscular Hemoglobin 29 pg (25-35) Mean Corpuscular Hemoglobin Concent 33 g/dL (31-37) Red Cell Distribution Width 12.7 % (11.5-14.5) Platelet Count 206 x10^3/uL (140-400) Neutrophils (%) (Auto) 66 % (31-73) Lymphocytes (%) (Auto) 28 % (24-48) Monocytes (%) (Auto) 5 % (0-9) Eosinophils (%) (Auto) 1 % (0-3) Basophils (%) (Auto) 0 % (0-3) Neutrophils # (Auto) 4.2 x10^3uL (1.8-7.7) Lymphocytes # (Auto) 1.8 x10^3/uL (1.0-4.8) Monocytes # (Auto) 0.3 x10^3/uL (0.0-1.1) Eosinophils # (Auto) 0.1 x10^3/uL (0.0-0.7) Basophils # (Auto) 0.0 x10^3/uL (0.0-0.2) Sodium Level 138 mmol/L (136-145) Potassium Level 3.8 mmol/L (3.5-5.1) Chloride Level 103 mmol/L (98-107) Carbon Dioxide Level 21 mmol/L (21-32) Anion Gap 14 (6-14) Blood Urea Nitrogen 7 mg/dL (7-20) Creatinine 0.5 mg/dL (0.6-1.0) Estimated GFR (Cockcroft-Gault) 137.4 BUN/Creatinine Ratio 14 (6-20) Glucose Level 58 mg/dL (70-99) Calcium Level 7.7 mg/dL (8.5-10.1) Total Bilirubin 0.6 mg/dL (0.2-1.0) Aspartate Amino Transf (AST/SGOT) 21 U/L (15-37) Alanine Aminotransferase (ALT/SGPT) 20 U/L (14-59) Alkaline Phosphatase 66 U/L (46-116) Total Protein 6.1 g/dL (6.4-8.2) Albumin 2.9 g/dL (3.4-5.0) Albumin/Globulin Ratio 0.9 (1.0-1.7) BETO HCE APRN October 28, 2018 08:07
--- NOTE | 2018-10-28 08:45 | PDOC ---
PROGRESS NOTES Chief Complaint Chief Complaint Acute small bowel obstruction INTRACTABLE NAUSEA AND VOMITING hx carcinoid tumor, remote volume depletion plan npo IV FLUID SUPPORT DVT PROPHYLAXIS IV PROTONIX GI PROPHYLAXIS DR EDWARDS CONSULTED, small bowel series today 26 MIN PT EXAM, chart review, > 50% of time spent with exam, chart review, pt care coordination History of Present Illness History of Present Illness Patient admitted with SBO, feeling pain and nausea this morning, passing flatus and has a strong appetite today. Vitals Vitals Vital Signs Date Time Temp Pulse Resp B/P (MAP) Pulse Ox O2 Delivery O2 Flow Rate FiO2 10/28/18 07:26 98 Room Air 10/28/18 07:00 98.2 82 18 105/55 (72) 98.2 Physical Exam General: Alert, Oriented X3, Cooperative, No acute distress, mild distress Heart: Regular rate, Normal S1, No murmurs Lungs: Clear, Other Abdomen: Normal bowel sounds, Soft, No tenderness, Other (nondistended) Extremities: No clubbing, No cyanosis, No edema Skin: No significant lesion Labs LABS Laboratory Tests Test 10/28/18 04:10 White Blood Count 6.4 x10^3/uL (4.0-11.0) Red Blood Count 4.39 x10^6/uL (3.50-5.40) Hemoglobin 12.7 g/dL (12.0-15.5) Hematocrit 38.6 % (36.0-47.0) Mean Corpuscular Volume 88 fL (79-100) Mean Corpuscular Hemoglobin 29 pg (25-35) Mean Corpuscular Hemoglobin Concent 33 g/dL (31-37) Red Cell Distribution Width 12.7 % (11.5-14.5) Platelet Count 206 x10^3/uL (140-400) Neutrophils (%) (Auto) 66 % (31-73) Lymphocytes (%) (Auto) 28 % (24-48) Monocytes (%) (Auto) 5 % (0-9) Eosinophils (%) (Auto) 1 % (0-3) Basophils (%) (Auto) 0 % (0-3) Neutrophils # (Auto) 4.2 x10^3uL (1.8-7.7) Lymphocytes # (Auto) 1.8 x10^3/uL (1.0-4.8) Monocytes # (Auto) 0.3 x10^3/uL (0.0-1.1) Eosinophils # (Auto) 0.1 x10^3/uL (0.0-0.7) Basophils # (Auto) 0.0 x10^3/uL (0.0-0.2) Sodium Level 138 mmol/L (136-145) Potassium Level 3.8 mmol/L (3.5-5.1) Chloride Level 103 mmol/L (98-107) Carbon Dioxide Level 21 mmol/L (21-32) Anion Gap 14 (6-14) Blood Urea Nitrogen 7 mg/dL (7-20) Creatinine 0.5 mg/dL (0.6-1.0) Estimated GFR (Cockcroft-Gault) 137.4 BUN/Creatinine Ratio 14 (6-20) Glucose Level 58 mg/dL (70-99) Calcium Level 7.7 mg/dL (8.5-10.1) Total Bilirubin 0.6 mg/dL (0.2-1.0) Aspartate Amino Transf (AST/SGOT) 21 U/L (15-37) Alanine Aminotransferase (ALT/SGPT) 20 U/L (14-59) Alkaline Phosphatase 66 U/L (46-116) Total Protein 6.1 g/dL (6.4-8.2) Albumin 2.9 g/dL (3.4-5.0) Albumin/Globulin Ratio 0.9 (1.0-1.7) Comment Review of Relevant I have reviewed the following items nitin (where applicable) has been applied. Labs Laboratory Tests Test 10/28/18 04:10 White Blood Count 6.4 x10^3/uL (4.0-11.0) Red Blood Count 4.39 x10^6/uL (3.50-5.40) Hemoglobin 12.7 g/dL (12.0-15.5) Hematocrit 38.6 % (36.0-47.0) Mean Corpuscular Volume 88 fL (79-100) Mean Corpuscular Hemoglobin 29 pg (25-35) Mean Corpuscular Hemoglobin Concent 33 g/dL (31-37) Red Cell Distribution Width 12.7 % (11.5-14.5) Platelet Count 206 x10^3/uL (140-400) Neutrophils (%) (Auto) 66 % (31-73) Lymphocytes (%) (Auto) 28 % (24-48) Monocytes (%) (Auto) 5 % (0-9) Eosinophils (%) (Auto) 1 % (0-3) Basophils (%) (Auto) 0 % (0-3) Neutrophils # (Auto) 4.2 x10^3uL (1.8-7.7) Lymphocytes # (Auto) 1.8 x10^3/uL (1.0-4.8) Monocytes # (Auto) 0.3 x10^3/uL (0.0-1.1) Eosinophils # (Auto) 0.1 x10^3/uL (0.0-0.7) Basophils # (Auto) 0.0 x10^3/uL (0.0-0.2) Sodium Level 138 mmol/L (136-145) Potassium Level 3.8 mmol/L (3.5-5.1) Chloride Level 103 mmol/L (98-107) Carbon Dioxide Level 21 mmol/L (21-32) Anion Gap 14 (6-14) Blood Urea Nitrogen 7 mg/dL (7-20) Creatinine 0.5 mg/dL (0.6-1.0) Estimated GFR (Cockcroft-Gault) 137.4 BUN/Creatinine Ratio 14 (6-20) Glucose Level 58 mg/dL (70-99) Calcium Level 7.7 mg/dL (8.5-10.1) Total Bilirubin 0.6 mg/dL (0.2-1.0) Aspartate Amino Transf (AST/SGOT) 21 U/L (15-37) Alanine Aminotransferase (ALT/SGPT) 20 U/L (14-59) Alkaline Phosphatase 66 U/L (46-116) Total Protein 6.1 g/dL (6.4-8.2) Albumin 2.9 g/dL (3.4-5.0) Albumin/Globulin Ratio 0.9 (1.0-1.7) Laboratory Tests Test 10/28/18 04:10 White Blood Count 6.4 x10^3/uL (4.0-11.0) Red Blood Count 4.39 x10^6/uL (3.50-5.40) Hemoglobin 12.7 g/dL (12.0-15.5) Hematocrit 38.6 % (36.0-47.0) Mean Corpuscular Volume 88 fL (79-100) Mean Corpuscular Hemoglobin 29 pg (25-35) Mean Corpuscular Hemoglobin Concent 33 g/dL (31-37) Red Cell Distribution Width 12.7 % (11.5-14.5) Platelet Count 206 x10^3/uL (140-400) Neutrophils (%) (Auto) 66 % (31-73) Lymphocytes (%) (Auto) 28 % (24-48) Monocytes (%) (Auto) 5 % (0-9) Eosinophils (%) (Auto) 1 % (0-3) Basophils (%) (Auto) 0 % (0-3) Neutrophils # (Auto) 4.2 x10^3uL (1.8-7.7) Lymphocytes # (Auto) 1.8 x10^3/uL (1.0-4.8) Monocytes # (Auto) 0.3 x10^3/uL (0.0-1.1) Eosinophils # (Auto) 0.1 x10^3/uL (0.0-0.7) Basophils # (Auto) 0.0 x10^3/uL (0.0-0.2) Sodium Level 138 mmol/L (136-145) Potassium Level 3.8 mmol/L (3.5-5.1) Chloride Level 103 mmol/L (98-107) Carbon Dioxide Level 21 mmol/L (21-32) Anion Gap 14 (6-14) Blood Urea Nitrogen 7 mg/dL (7-20) Creatinine 0.5 mg/dL (0.6-1.0) Estimated GFR (Cockcroft-Gault) 137.4 BUN/Creatinine Ratio 14 (6-20) Glucose Level 58 mg/dL (70-99) Calcium Level 7.7 mg/dL (8.5-10.1) Total Bilirubin 0.6 mg/dL (0.2-1.0) Aspartate Amino Transf (AST/SGOT) 21 U/L (15-37) Alanine Aminotransferase (ALT/SGPT) 20 U/L (14-59) Alkaline Phosphatase 66 U/L (46-116) Total Protein 6.1 g/dL (6.4-8.2) Albumin 2.9 g/dL (3.4-5.0) Albumin/Globulin Ratio 0.9 (1.0-1.7) Medications Current Medications Fentanyl Citrate (Fentanyl 2ml Vial) 50 mcg PRN Q4HRS PRN IV PAIN Last administered on 10/26/18 21:31; Start 10/25/18 at 17:15; Stop 10/27/18 at 13:09; Status DC Sodium Chloride (Normal Saline Flush 3ml) 3 ml QSHIFT PRN IV AFTER MEDS AND BLOOD DRAWS; Start 10/25/18 at 18:45 Sodium Chloride 1,000 ml @ 100 mls/hr Q10H IV Last administered on 10/28/18 06:40; Start 10/25/18 at 18:39 Ondansetron HCl (Zofran) 4 mg PRN Q4HRS PRN IV NAUSEA/VOMITING Last administered on 10/26/18 21:34; Start 10/25/18 at 18:45 Acetaminophen (Tylenol Supp) 650 mg PRN Q4HRS PRN NV TEMP OVER 100.4F OR MILD PAIN; Start 10/25/18 at 18:45 Clonidine HCl (Catapres) 0.1 mg PRN Q6HRS PRN PO SBP>160 OR DBP>90; Start 10/25/18 at 18:45 Diphenhydramine HCl (Benadryl) 25 mg PRN Q4HRS PRN IVP ITCHING Last administered on 10/27/18 22:57; Start 10/25/18 at 18:45 Albuterol/ Ipratropium (Duoneb) 3 ml Q4H NEB Last administered on 10/28/18 07:24; Start 10/25/18 at 18:45 Guaifenesin (Robitussin) 200 mg PRN Q4HRS PRN PO COUGH; Start 10/25/18 at 18:45 Lorazepam (Ativan) 0.5 mg PRN Q4HRS PRN PO ANXIETY / AGITATION; Start 10/25/18 at 18:45 Enoxaparin Sodium (Lovenox 40mg Syringe) 40 mg DAILY SQ Last administered on 10/27/18 08:27; Start 10/26/18 at 09:00 Fentanyl Citrate (Fentanyl 2ml Vial) 50 mcg 1X ONCE IV Last administered on 10/25/18 19:44; Start 10/25/18 at 19:45; Stop 10/25/18 at 19:46; Status DC Fentanyl Citrate (Fentanyl 2ml Vial) 75 mcg PRN Q3HRS PRN IV PAIN Last administ ered on 10/27/18at 18:13; Start 10/25/18 at 19:45 Iohexol (Omnipaque 300 Mg/ml) 300 ml 1X ONCE PO Last administered on 10/28/18at 08:08; Start 10/28/18 at 07:45; Stop 10/28/18 at 07:46; Status DC Info (CONTRAST GIVEN -- Rx MONITORING) 1 each PRN DAILY PRN MC SEE COMMENTS; Start 10/28/18 at 07:45; Stop 10/30/18 at 07:44 Active Scripts Active Reported Zoloft (Sertraline Hcl) 100 Mg Tablet 1 Tab PO DAILY Vitals/I & O Vital Sign - Last 24 Hours 10/27/18 10/27/18 10/27/18 10/27/18 11:00 15:00 18:13 18:43 Temp 98.2 98.1 98.2 98.1 Pulse 73 74 Resp 18 18 B/P (MAP) 103/77 (86) 101/73 (82) Pulse Ox 96 94 O2 Delivery Room Air Room Air Room Air Room Air 10/27/18 10/27/18 10/27/18 10/28/18 19:18 20:00 23:00 03:00 Temp 98.5 97.9 98.5 98.5 97.9 98.5 Pulse 87 88 77 Resp 18 18 18 B/P (MAP) 106/68 (81) 117/68 (84) 109/57 (74) Pulse Ox 99 100 100 O2 Delivery Room Air Room Air Room Air Room Air 10/28/18 10/28/18 10/28/18 07:00 07:20 07:26 Temp 98.2 98.2 Pulse 82 Resp 18 B/P (MAP) 105/55 (72) Pulse Ox 97 98 O2 Delivery Room Air Room Air Room Air Intake and Output 10/27/18 10/27/18 10/28/18 15:00 23:00 07:00 Intake Total 0 ml Output Total 480 ml 450 ml Balance -480 ml -450 ml JOSE OH MD October 28, 2018 08:45
--- NOTE | 2018-10-28 09:50 | NUR ---
pt returned to floor at this time in stable condition. pt has call light within reach. will continue to monitor.
--- NOTE | 2018-10-28 10:00 | NUR ---
SW following for discharge planning. Discussed with RN, pt is from home with family. Having a small bowel series today. SW will continue to follow for any discharge planning needs.
[2018-10-28] MEDS: ONDANSETRON PF 4 MG/2 ML VIAL. IV PRN (10:31)
[2018-10-28] MEDS: fentaNYL PF VIAL 100 MCG/2 ML VIAL IV PRN (10:31)
[2018-10-28] MEDS: ENOXAPARIN 40 MG/0.4 ML SYRINGE. SQ SCH (10:32)
[2018-10-28 11:00] VITALS: BP 108/56
--- NOTE | 2018-10-28 11:15 | RAD ---
Examination: SMALL BOWEL SERIES History: Small bowel obstruction Comparison/Correlation: 10/27/2018 frontal view chest with abdomen obstruction series Findings: Frontal view of the abdomen was obtained. Right upper quadrant surgical clips are present. Suture material involves the right mid abdomen and right upper quadrant. Fluoroscopy was utilized for 0.5 minutes. Total of 4 spot images were provided in addition to overhead images. Omnipaque 300 was administered orally. Contrast is noted within the mid jejunum on the immediate image provided contrast reaches the ileocolic anastomosis at approximately 60 minutes. There is mild distention of a few jejunal loops of bowel. Transition within the upper pelvic region is suggested. No abnormal distention of the ileum. No suspicious filling defects. Impression: Transit of contrast to the ileocolic junction is normal. No findings of obstructive. Mild distention of a few left mid abdominal jejunal loops of bowel which may represent ileus is noted. Electronically signed by: Timothy Vaughan MD (10/28/2018 11:13 AM) [facility]
[2018-10-28] MEDS ORDERED: ALBUTEROL SULFATE 2.5 MG/3 ML NEBU. NEB PRN (12:30)
[2018-10-28 15:00] VITALS: BP 108/70
[2018-10-28 19:00] VITALS: BP 108/66
[2018-10-28] MEDS: diphenhydrAMINE 50 MG/ML VIAL IVP PRN (21:49)
[2018-10-28 23:00] VITALS: BP 102/65
[2018-10-28] MEDS ORDERED: diphenhydrAMINE ORAL ELIXIR 12.5 MG/5 ML ML PO PRN (23:30)
[2018-10-28] MEDS ORDERED: HYDROcodone/APAP 5/325MG 1 TAB TABLET PO PRN (23:30)
[2018-10-28] MEDS ORDERED: ONDANSETRON ODT 4 MG TAB.RAPDIS. PO PRN (23:30)
[2018-10-29] MEDS: IV NORMAL SALINE 1000ML BAG 1,000 ML IV SCH ×2 (02:39→12:39)
[2018-10-29 03:00] VITALS: BP 115/61
[2018-10-29 07:00] VITALS: BP 109/66
--- NOTE | 2018-10-29 07:54 | PDOC ---
BETO CHE TUG MASTER 10/29/18 0754: SURGICAL PROGRESS NOTE Subjective feels better no n/v multiple stools yesterday Vital Signs Vital Signs Date Time Temp Pulse Resp B/P (MAP) Pulse Ox O2 Delivery O2 Flow Rate FiO2 10/29/18 03:00 98.0 77 18 115/61 (79) 97 Room Air 98.0 General: Alert, Oriented X3, Cooperative, No acute distress Abdomen: Normal bowel sounds, Soft, No tenderness Labs Laboratory Tests Test 10/28/18 04:10 White Blood Count 6.4 x10^3/uL (4.0-11.0) Red Blood Count 4.39 x10^6/uL (3.50-5.40) Hemoglobin 12.7 g/dL (12.0-15.5) Hematocrit 38.6 % (36.0-47.0) Mean Corpuscular Volume 88 fL (79-100) Mean Corpuscular Hemoglobin 29 pg (25-35) Mean Corpuscular Hemoglobin Concent 33 g/dL (31-37) Red Cell Distribution Width 12.7 % (11.5-14.5) Platelet Count 206 x10^3/uL (140-400) Neutrophils (%) (Auto) 66 % (31-73) Lymphocytes (%) (Auto) 28 % (24-48) Monocytes (%) (Auto) 5 % (0-9) Eosinophils (%) (Auto) 1 % (0-3) Basophils (%) (Auto) 0 % (0-3) Neutrophils # (Auto) 4.2 x10^3uL (1.8-7.7) Lymphocytes # (Auto) 1.8 x10^3/uL (1.0-4.8) Monocytes # (Auto) 0.3 x10^3/uL (0.0-1.1) Eosinophils # (Auto) 0.1 x10^3/uL (0.0-0.7) Basophils # (Auto) 0.0 x10^3/uL (0.0-0.2) Sodium Level 138 mmol/L (136-145) Potassium Level 3.8 mmol/L (3.5-5.1) Chloride Level 103 mmol/L (98-107) Carbon Dioxide Level 21 mmol/L (21-32) Anion Gap 14 (6-14) Blood Urea Nitrogen 7 mg/dL (7-20) Creatinine 0.5 mg/dL (0.6-1.0) Estimated GFR (Cockcroft-Gault) 137.4 BUN/Creatinine Ratio 14 (6-20) Glucose Level 58 mg/dL (70-99) Calcium Level 7.7 mg/dL (8.5-10.1) Total Bilirubin 0.6 mg/dL (0.2-1.0) Aspartate Amino Transf (AST/SGOT) 21 U/L (15-37) Alanine Aminotransferase (ALT/SGPT) 20 U/L (14-59) Alkaline Phosphatase 66 U/L (46-116) Total Protein 6.1 g/dL (6.4-8.2) Albumin 2.9 g/dL (3.4-5.0) Albumin/Globulin Ratio 0.9 (1.0-1.7) Problem List sbo resolved SBFT without obstruction advance diet as tolerated ANSON EDWARDS MD 10/29/18 0919: SURGICAL PROGRESS NOTE Assessment/Plan Small bowel follow-through shows no obstruction patient has had multiple bowel movements feeling much better with agree with Tico assessment and plan for advancing of diet. Resolved small bowel obstruction BETO CHE APRN October 29, 2018 07:54 ANSON EDWARDS MD October 29, 2018 09:19
--- NOTE | 2018-10-29 08:10 | PDOC ---
PROGRESS NOTES Chief Complaint Chief Complaint Acute small bowel obstruction INTRACTABLE NAUSEA AND VOMITING hx carcinoid tumor, remote volume depletion 26 MIN PT EXAM, chart review, > 50% of time spent with exam, chart review, pt care coordination History of Present Illness History of Present Illness Pleasant 37 y/o female who we have seen in the past. H/o SBOs - tells me today it all started after having a . Last felt bloated w/ RLQ "pinching" similar to previous obstructions. Tried avoiding eating but pain and bloating worsened, also had some vomiting. Evaluated at [facility], then transferred here on 10/25. Surgery following - improved w/ NG tube, also had SBS yesterday w/o obstruction. Now NG out and tolerating clear liquids. Has had watery diarrhea yesterday and today. Says she has been told by her regular doctor to avoid fiber, but another doctor told her she had a lot of retained stool - she wonders what to eat. Occasional reflux symptoms improved w/ Zantac QHS PRN. No dysphagia. No hematemesis, hematochezia, melena. Typical no issues w/ diarrhea or constipation. No weight loss. No previous EGD. Reportedly normal colonoscopy @ [facility] in 2017. 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 S/p cholecystectomy (had stones). No liver, pancreas, or PUD history. No NSAIDs. SBFT yesterday clear. Multiple BM yesterday with relief. Patient admitted with SBO, feeling less pain and nausea this morning, passing flatus and has a strong appetite today. Vitals Vitals Vital Signs Date Time Temp Pulse Resp B/P (MAP) Pulse Ox O2 Delivery O2 Flow Rate FiO2 10/29/18 03:00 98.0 77 18 115/61 (79) 97 Room Air 98.0 Physical Exam General: Alert, Oriented X3, Cooperative, No acute distress Heart: Regular rate, Normal S1, No murmurs Lungs: Clear, Other Abdomen: Normal bowel sounds, Soft, No tenderness Extremities: No clubbing, No cyanosis, No edema Skin: No significant lesion Comment Review of Relevant I have reviewed the following items nitin (where applicable) has been applied. Labs Laboratory Tests Test 10/28/18 04:10 White Blood Count 6.4 x10^3/uL (4.0-11.0) Red Blood Count 4.39 x10^6/uL (3.50-5.40) Hemoglobin 12.7 g/dL (12.0-15.5) Hematocrit 38.6 % (36.0-47.0) Mean Corpuscular Volume 88 fL (79-100) Mean Corpuscular Hemoglobin 29 pg (25-35) Mean Corpuscular Hemoglobin Concent 33 g/dL (31-37) Red Cell Distribution Width 12.7 % (11.5-14.5) Platelet Count 206 x10^3/uL (140-400) Neutrophils (%) (Auto) 66 % (31-73) Lymphocytes (%) (Auto) 28 % (24-48) Monocytes (%) (Auto) 5 % (0-9) Eosinophils (%) (Auto) 1 % (0-3) Basophils (%) (Auto) 0 % (0-3) Neutrophils # (Auto) 4.2 x10^3uL (1.8-7.7) Lymphocytes # (Auto) 1.8 x10^3/uL (1.0-4.8) Monocytes # (Auto) 0.3 x10^3/uL (0.0-1.1) Eosinophils # (Auto) 0.1 x10^3/uL (0.0-0.7) Basophils # (Auto) 0.0 x10^3/uL (0.0-0.2) Sodium Level 138 mmol/L (136-145) Potassium Level 3.8 mmol/L (3.5-5.1) Chloride Level 103 mmol/L (98-107) Carbon Dioxide Level 21 mmol/L (21-32) Anion Gap 14 (6-14) Blood Urea Nitrogen 7 mg/dL (7-20) Creatinine 0.5 mg/dL (0.6-1.0) Estimated GFR (Cockcroft-Gault) 137.4 BUN/Creatinine Ratio 14 (6-20) Glucose Level 58 mg/dL (70-99) Calcium Level 7.7 mg/dL (8.5-10.1) Total Bilirubin 0.6 mg/dL (0.2-1.0) Aspartate Amino Transf (AST/SGOT) 21 U/L (15-37) Alanine Aminotransferase (ALT/SGPT) 20 U/L (14-59) Alkaline Phosphatase 66 U/L (46-116) Total Protein 6.1 g/dL (6.4-8.2) Albumin 2.9 g/dL (3.4-5.0) Albumin/Globulin Ratio 0.9 (1.0-1.7) Medications Current Medications Fentanyl Citrate (Fentanyl 2ml Vial) 50 mcg PRN Q4HRS PRN IV PAIN Last administered on 10/26/18 21:31; Start 10/25/18 at 17:15; Stop 10/27/18 at 13:09; Status DC Sodium Chloride (Normal Saline Flush 3ml) 3 ml QSHIFT PRN IV AFTER MEDS AND BLOOD DRAWS; Start 10/25/18 at 18:45 Sodium Chloride 1,000 ml @ 100 mls/hr Q10H IV Last administered on 10/28/18at 16:39; Start 10/25/18 at 18:39 Ondansetron HCl (Zofran) 4 mg PRN Q4HRS PRN IV NAUSEA/VOMITING Last administe red on 10/28/18 10:31; Start 10/25/18 at 18:45 Acetaminophen (Tylenol Supp) 650 mg PRN Q4HRS PRN HI TEMP OVER 100.4F OR MILD P AIN; Start 10/25/18 at 18:45 Clonidine HCl (Catapres) 0.1 mg PRN Q6HRS PRN PO SBP>160 OR DBP>90; Start 10/25/18 at 18:45 Diphenhydramine HCl (Benadryl) 25 mg PRN Q4HRS PRN IVP ITCHING Last administered on 10/28/18at 21:49; Start 10/25/18 at 18:45 Albuterol/ Ipratropium (Duoneb) 3 ml Q4H NEB Last administered on 10/28/18at 07:24; Start 10/25/18 at 18:45; Stop 10/28/18 at 12:24; Status DC Guaifenesin (Robitussin) 200 mg PRN Q4HRS PRN PO COUGH; Start 10/25/18 at 18:45 Lorazepam (Ativan) 0.5 mg PRN Q4HRS PRN PO ANXIETY / AGITATION; Start 10/25/18 at 18:45 Enoxaparin Sodium (Lovenox 40mg Syringe) 40 mg DAILY SQ Last administered on 10/28/18at 10:32; Start 10/26/18 at 09:00 Fentanyl Citrate (Fentanyl 2ml Vial) 50 mcg 1X ONCE IV Last administered on 10/25/18at 19:44; Start 10/25/18 at 19:45; Stop 10/25/18 at 19:46; Status DC Fentanyl Citrate (Fentanyl 2ml Vial) 75 mcg PRN Q3HRS PRN IV PAIN Last administered on 10/28/18at 10:31; Start 10/25/18 at 19:45 Iohexol (Omnipaque 300 Mg/ml) 300 ml 1X ONCE PO Last administered on 10/28/18 08:08; Start 10/28/18 at 07:45; Stop 10/28/18 at 07:46; Status DC Info (CONTRAST GIVEN -- Rx MONITORING) 1 each PRN DAILY PRN MC SEE COMMENTS; Start 10/28/18 at 07:45; Stop 10/30/18 at 07:44 Albuterol Sulfate (Ventolin Neb Soln) 2.5 mg PRN Q4HRS PRN NEB SHORTNESS OF BREATH; Start 10/28/18 at 12:30 Ondansetron HCl (Zofran Odt) 4 mg PRN Q6HRS PRN PO NAUSEA/VOMITING 1ST CHOICE; Start 10/28/18 at 23:30 Acetaminophen/ Hydrocodone Bitart (Lortab 5/325) 1 tab PRN Q6HRS PRN PO MODERATE PAIN; Start 10/28/18 at 23:30 Diphenhydramine HCl (Benadryl Oral Elixir) 25 mg PRN Q6HRS PRN PO ITCHING; Start 10/28/18 at 23:30 Active Scripts Active Reported Zoloft (Sertraline Hcl) 100 Mg Tablet 1 Tab PO DAILY Vitals/I & O Vital Sign - Last 24 Hours 10/28/18 10/28/18 10/28/18 10/28/18 10:31 11:00 11:00 15:00 Temp 98.4 98.2 98.4 98.2 Pulse 72 73 Resp 18 18 B/P (MAP) 108/56 (73) 108/70 (83) Pulse Ox 94 98 O2 Delivery Room Air Room Air Room Air Room Air 510/28/18 10/28/18 10/29/18 19:00 20:30 23:00 03:00 Temp 98.7 98.4 98.0 98.7 98.4 98.0 Pulse 70 75 77 Resp 18 18 18 B/P (MAP) 108/66 (80) 102/65 (77) 115/61 (79) Pulse Ox 99 98 97 O2 Delivery Room Air Room Air Room Air Room Air JOSE OH MD October 29, 2018 08:10
[2018-10-29] MEDS: ENOXAPARIN 40 MG/0.4 ML SYRINGE. SQ SCH (08:53)
[2018-10-29 11:00] VITALS: BP 134/71
--- NOTE | 2018-10-29 11:57 | NUR ---
SW following for discharge planning. Discussed with RN, pt is from home with family. Advancing diet to soft today, possible discharge home with self care. RN advised no SW needs.
--- NOTE | 2018-10-29 12:28 | PDOC2 ---
GI CONSULT Reason For Consult: hx SBO, ileus HPI: HPI: Pleasant 37 y/o female who we have seen in the past. H/o SBOs - tells me today it all started after having a . Last felt bloated w/ RLQ "pinching" similar to previous obstructions. Tried avoiding eating but pain and bloating worsened, also had some vomiting. Evaluated at [facility], then transferred here on 10/25. Surgery following - improved w/ NG tube, also had SBS yesterday w/o obstruction. Now NG out and tolerating clear liquids. Has had watery diarrhea yesterday and today. Says she has been told by her regular doctor to avoid fiber, but another doctor told her she had a lot of retained stool - she wonders what to eat. Occasional reflux symptoms improved w/ Zantac QHS PRN. No dysphagia. No hematemesis, hematochezia, melena. Typical no issues w/ diarrhea or constipation. No weight loss. No previous EGD. Reportedly normal colonoscopy @ [facility] in 2017. 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 S/p cholecystectomy (had stones). No liver, pancreas, or PUD history. No NSAIDs. PMH: PMH: GERD, anxiety/depression, SBOs , cholecystectomy, right hemicolectomy, appendectomy FH: Family History: CAD, DM Social History: Smoke: No ALCOHOL: none Drugs: None ROS: GEN: Denies fevers, chills, sweats HEENT: Denies blurred vision, sore throat CV: Denies chest pain RESP: Denies shortness of air, cough GI: Per HPI : Denies hematuria, dysuria ENDO: Denies weight changes NEURO: Denies confusion, dizziness MSK: Denies weakness, joint pain/swelling SKIN: Denies jaundice, pruritus Vitals: Vitals: Vital Signs Date Time Temp Pulse Resp B/P (MAP) Pulse Ox O2 Delivery O2 Flow Rate FiO2 10/29/18 11:00 98.0 84 16 134/71 (92) 98 Room Air 98.0 Allergies: Coded Allergies: metoclopramide (Verified Allergy, Severe, Shortness of Air, 04/18/18) promethazine (Verified Allergy, Intermediate, 04/18/18) Imaging: Imaging: [facility] 10/27/18 Impression: Slight improvement in the air distention of small bowel loops within the abdomen. SBS 10/28/18 Impression: Transit of contrast to the ileocolic junction is normal. No findings of obstructive. Mild distention of a few left mid abdominal jejunal loops of bowel which may represent ileus is noted. PE: GEN: NAD HEENT: Atraumatic, PERRL LUNGS: CTAB HEART: RRR ABD: NABS, S/ND/NT EXTREMITY: No edema SKIN: No rashes, no jaundice NEURO/PSYCH: A & O 3 A/P: A/P: Recurrent SBO - resolved w/ imaging as above GERD - mild/rare symptoms, takes H2 katherine PRN CRC screen - UTD (2016) H/o carcinoid tumor w/ resection S/p cholecystectomy -- Improved. Continue diet per surgery. Probably doesn't need to modify diet, typically no issues stooling and obstructive symptoms intermittent - okay to eat fiber. NAMITA ROQUE October 29, 2018 12:28
[2018-10-29] MEDS ORDERED: DIPH12.58 PO (14:11)
[2018-10-29] MEDS ORDERED: ONDA4TAB12 PO (14:12)
[2018-10-29] MEDS ORDERED: HYDR-2761 PO (14:12)
--- NOTE | 2018-10-29 14:15 | PDOC3 ---
Discharge Summary Visit Information Date of Admission: October 25, 2018 Date of Discharge: October 29, 2018 Admitting Diagnosis: SBO Final Diagnosis SBO Brief Hospital Course Allergies Allergies Coded Allergies Type Severity Reaction Last Updated Verified metoclopramide Allergy Severe Shortness of Air 04/18/18 Yes promethazine Allergy Intermediate 04/18/18 Yes Vital Signs Vital Signs Date Time Temp Pulse Resp B/P (MAP) Pulse Ox O2 Delivery O2 Flow Rate FiO2 10/29/18 11:00 98.0 84 16 134/71 (92) 98 Room Air 98.0 Lab Results Laboratory Tests Test 10/28/18 04:10 White Blood Count 6.4 x10^3/uL (4.0-11.0) Red Blood Count 4.39 x10^6/uL (3.50-5.40) Hemoglobin 12.7 g/dL (12.0-15.5) Hematocrit 38.6 % (36.0-47.0) Mean Corpuscular Volume 88 fL (79-100) Mean Corpuscular Hemoglobin 29 pg (25-35) Mean Corpuscular Hemoglobin Concent 33 g/dL (31-37) Red Cell Distribution Width 12.7 % (11.5-14.5) Platelet Count 206 x10^3/uL (140-400) Neutrophils (%) (Auto) 66 % (31-73) Lymphocytes (%) (Auto) 28 % (24-48) Monocytes (%) (Auto) 5 % (0-9) Eosinophils (%) (Auto) 1 % (0-3) Basophils (%) (Auto) 0 % (0-3) Neutrophils # (Auto) 4.2 x10^3uL (1.8-7.7) Lymphocytes # (Auto) 1.8 x10^3/uL (1.0-4.8) Monocytes # (Auto) 0.3 x10^3/uL (0.0-1.1) Eosinophils # (Auto) 0.1 x10^3/uL (0.0-0.7) Basophils # (Auto) 0.0 x10^3/uL (0.0-0.2) Sodium Level 138 mmol/L (136-145) Potassium Level 3.8 mmol/L (3.5-5.1) Chloride Level 103 mmol/L (98-107) Carbon Dioxide Level 21 mmol/L (21-32) Anion Gap 14 (6-14) Blood Urea Nitrogen 7 mg/dL (7-20) Creatinine 0.5 mg/dL (0.6-1.0) Estimated GFR (Cockcroft-Gault) 137.4 BUN/Creatinine Ratio 14 (6-20) Glucose Level 58 mg/dL (70-99) Calcium Level 7.7 mg/dL (8.5-10.1) Total Bilirubin 0.6 mg/dL (0.2-1.0) Aspartate Amino Transf (AST/SGOT) 21 U/L (15-37) Alanine Aminotransferase (ALT/SGPT) 20 U/L (14-59) Alkaline Phosphatase 66 U/L (46-116) Total Protein 6.1 g/dL (6.4-8.2) Albumin 2.9 g/dL (3.4-5.0) Albumin/Globulin Ratio 0.9 (1.0-1.7) Brief Hospital Course Ms King is a 37 y/o female w/ PMHx carcinoid tumor, s/p lap osmani with H/o SBOs - all started after having a . Last felt bloated w/ RLQ "pinching" similar to previous obstructions. Tried avoiding eating but pain and bloating worsened, also had some vomiting. Evaluated at [facility], then transferred here on 10/25. Surgery following - improved w/ NG tube, also had SBS yesterday w/o obstruction. Now NG out and tolerating clear liquids. Has had watery diarrhea yesterday and today. Says she has been told by her regular doctor to avoid fiber, but another doctor told her she had a lot of retained stool - she wonders what to eat. Occasional reflux symptoms improved w/ Zantac QHS PRN. No dysphagia. No hematemesis, hematochezia, melena. Typical no issues w/ diarrhea or constipation. No weight loss. No previous EGD. Reportedly normal colonoscopy @ [facility] in 2017. 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 S/p cholecystectomy (had stones). No liver, pancreas, or PUD history. No NSAIDs. SBFT 10/28 clear. Multiple BM 10/28 with relief. Patient admitted with SBO, feeling less pain and nausea this morning, passing flatus and has a strong appetite today. Wishes for discharge home, no diet restrictions, she can have fiber diet. Advised this may be 2/2 adhesions. She was seen by surgery and GI, advised the same. Acute small bowel obstruction INTRACTABLE NAUSEA AND VOMITING hx carcinoid tumor, remote volume depletion Greater than 30 minutes spent on day of discharge, chart review, > 50% of time spent with exam, chart review, pt care coordination Discharge Information Condition at Discharge: Improved Follow Up: Weeks (2) Disposition/Orders: D/C to Home Scheduled Sertraline Hcl (Zoloft) 100 Mg Tablet, 1 TAB PO DAILY, #30 Ref 5 (Reported) Entered as Reported by: EMELI ISBLEY on 10/15/15 0405 Last Action: Reviewed on 10/25/181701 by TAZ EASON Scheduled PRN Diphenhydramine Hcl (Diphenhydramine Hcl) 12.5 Mg/5 Ml Elixir, 25 MG PO PRN Q6HRS PRN for ITCHING for 10 Days, #30 Prescribed by: JOSE OH MD on 10/29/18 1411 Hydrocodone Bit/Acetaminophen (Hydrocodone-Apap 5-325 ) 1 Tab Tablet, 1 TAB PO PRN Q6HRS PRN for MODERATE PAIN for 6 Days, #12 Prescribed by: JOSE OH MD on 10/29/18 1412 Ondansetron (Ondansetron Odt) 4 Mg Tab.rapdis, 4 MG PO PRN Q6HRS PRN for NAUSEA/VOMITING 1ST CHOICE for 30 Days, #30 Ref 2 Prescribed by: JOSE OH MD on 10/29/18 1412 Discontinued Medications Hydrocodone/Apap 5-325 ([place] 5-325 Tablet) 1 Each Tablet, 1-2 TAB PO Q4-6HRS for pain, #40 (Reported) LAST DOSE GIVEN: Entered as Reported by: SYDNIE SOUZA on 04/18/18 1315 Last Action: Discontinued on 10/25/181701 by JOSE VALVERDE MD October 29, 2018 14:15
[2018-10-29 15:00] VITALS: BP 110/60
--- NOTE | 2018-10-29 19:51 | NUR ---
Pt discharged approximately at 1830. Pt was A&OX4, VSS, tolerated previous soft & regular diet well. Denied N/V/D, denied pain. Pt was transported to entrance via wheelchair by staff. Pt's picked up pt from entrance to transport home via private vehicle.
== END 2018-10-29 18:30 | disposition home or self-care (01) | DRG 390 ==
LOC: 4 NORTH 16:52
PROVIDERS: ADMIT Family Medicine; ATTEND Family Medicine
PROC: 0D9670Z Drainage of Stomach with Drainage Device, Via Natural or Artificial Opening (ICD-10-PCS; principal; 2018-10-26)
DX: K56.609 Unspecified intestinal obstruction, unspecified as to partial versus complete obstruction (principal); E86.9 Volume depletion, unspecified; F32.9 Major depressive disorder, single episode, unspecified; F41.9 Anxiety disorder, unspecified; K21.9 Gastro-esophageal reflux disease without esophagitis; Z82.49 Family history of ischemic heart disease and other diseases of the circulatory system; Z90.49 Acquired absence of other specified parts of digestive tract; Z83.3 Family history of diabetes mellitus; Z79.899 Other long term (current) drug therapy; Z88.8 Allergy status to other drugs, medicaments and biological substances
CPT/HCPCS: 36415; 74022; 74250; 80053; 81001; 85025; 93005; 94640; 94760; J1200; J1650; J2405; J3010; J7030; J7620; Q9967